=== PATIENT | male | born 1930 | race Caucasian/White ===

== ENCOUNTER 2016-06-17 17:52 | Inpatient (IN) | payer MEDICARE ==
[2016-06-17] VITALS (11 sets, daily range): BP systolic 122–177; BP diastolic 65–86; PULSE 88–99; RESP 14–22; TEMP 97.9–98; O2SAT 89–97
[~2016-06-17] VITALS: Ht 188 cm; Wt 94.8 kg
[~2016-06-17 17:52] MED LIST: AMLO5TAB2 PO; ASPI325T PO; BUPR1TAB29 PO; TYLETAB34 PO
[2016-06-17] MEDS ORDERED: PRESCAP5 PO (18:11)
[2016-06-17] MEDS ORDERED: SODIUM CHLORIDE 0.9% FLUSH 10 ML FLUSH IVF PRN ×2 (18:15→20:15)
[2016-06-17] MEDS ORDERED: ASPIRIN 325 MG TAB PO ONE (18:15)
--- NOTE | 2016-06-17 18:41 | PD ---
HPI Chief Complaint: Syncope/Near-Syncope Time Seen by Provider: 18:07 Travel History International Travel<30 days: No Contact w/Intl Traveler<30days: No Traveled to known affect area: No History of Present Illness HPI 85-year-old male arrives by EMS. He had a syncopal episode today. He was in his house where he has 24 7 home nurse care. He grabbed onto the railing adjacent to the door and wall in his bedroom and then fell to the ground. He was unresponsive for a few seconds. The home health aide was at his side and commenced chest compressions and performed about 6 in total before the patient regained consciousness. Evidently he clenched his jaw and became cyanotic on the order of seconds to maybe 1 minute. EMS notes urinary incontinence. R patient has no history of epilepsy however takes buproprion. EMS notes on scene the vital signs were normal and the patient was alert and oriented 3. His blood glucose was about 120. On room air the patient's pulse ox ox was 82%. That improved to the mid 90s with nonrebreather. In the ER the patient offers no specific complaint. He reports feeling lousy generally however he continues that has been in his usual state of health for the last few days. The daughter reports the patient is suffering with mild dementia, Parkinson's, depression and has declined somewhat rapidly over the past several weeks. PFSH Past Medical History Depression: Yes Heart Rhythm Problems: Yes Cancer: Yes (SKIN CANCER REMOVAL OF NOSE, EAR, AND CHEST) Cardiovascular Problems: Yes High Cholesterol: Yes Chemotherapy: No Chest Pain: Yes Congestive Heart Failure: No Cerebrovascular Accident: Yes (TIA DURING KNEE REPLACEMENT) Endocrine: No Genitourinary: No Hypertension: Yes Implanted Vascular Access Dvce: Yes Musculoskeletal: No Neurologic: Yes Parkinson's Disease: Yes Reproductive: No Respiratory: No Integumentary: Yes (BASAL CELL CARCINOMA) Immunizations Current: Yes Migraines: No Radiation Therapy: No Seizures: No Tetanus Vaccination: > 5 Years Influenza Vaccination: Yes Past Surgical History Joint Replacement: Yes (LEFT KNEE) Other Surgery: Yes (BASAL CELL CARCINOMA CHEST) Social History Alcohol Use: No Tobacco Use: No (QUIT ~1970) Substance Use: No Allergies-Medications (Allergen,Severity, Reaction): Coded Allergies: No Known Allergies (Unverified , 02/11/16) Reported Meds & Prescriptions Reported Meds & Active Scripts Active Tylenol-Codeine #3 (Acetaminophen-Codeine) 300-30 mg Tab 1 Tab PO Q6HR PRN Reported Preservision Areds 2 (Multiple Vitamins W/ Minerals) 1 Cap 1 Cap PO DAILY Bupropion HCl ER 12 HR (Bupropion HCl) 150 Mg Tab 150 Mg PO TID Aspirin 325 Mg Tab 325 Mg PO DAILY Amlodipine (Amlodipine Besylate) 5 Mg Tab 5 Mg PO BID Review of Systems Except as stated in HPI: all other systems reviewed are Neg General / Constitutional: No: Fever Psychiatric: Positive: Depression Physical Exam Narrative GENERAL: 85-year-old male pleasant well-nourished well-developed mild distress, speaking full sentences SKIN: Focused skin assessment warm/dry. HEAD: Atraumatic. Normocephalic. EYES: Pupils equal and round. No scleral icterus. No injection or drainage. ENT: No nasal bleeding or discharge. Mucous membranes pink and moist. NECK: Trachea midline. No JVD. CARDIOVASCULAR: Regular rate and rhythm. No murmur appreciated. RESPIRATORY: Breath sounds are clear on my exam. Patient speaks in short sentences. GASTROINTESTINAL: Abdomen soft, non-tender, nondistended. Hepatic and splenic margins not palpable. MUSCULOSKELETAL: No obvious deformities. No clubbing. No cyanosis. Trace edema about the bilateral lower extremities. NEUROLOGICAL: Awake and alert. No obvious cranial nerve deficits. Motor grossly within normal limits. Normal speech. PSYCHIATRIC: Appropriate mood and affect; insight and judgment normal. Data Data Last Documented VS Vital Signs Date Time Temp Pulse Resp B/P Pulse Ox O2 Delivery O2 Flow Rate FiO2 06/17/16 19:03 97 15 148/66 91 Nasal Cannula 4 06/17/16 17:59 98.0 Vital signs reviewed Orders Electrocardiogram (06/17/16 18:09) Basic Metabolic Panel (Bmp) (06/17/16 18:09) B-Type Natriuretic Peptide (06/17/16 18:09) Ckmb (Isoenzyme) Profile (06/17/16 18:09) Complete Blood Count With Diff (06/17/16 18:09) Magnesium (Mg) (06/17/16 18:09) Prothrombin Time / Inr (Pt) (06/17/16 18:09) Act Partial Throm Time (Ptt) (06/17/16 18:09) Troponin I (06/17/16 18:09) Chest, Single Ap (06/17/16 18:09) Ecg Monitoring (06/17/16 18:09) Bilateral Bp Monitoring (06/17/16 18:09) Iv Access Insert/Monitor (06/17/16 18:09) Oximetry (06/17/16 18:09) Oxygen Administration (06/17/16 18:09) Aspirin (Aspirin) (06/17/16 18:15) Sodium Chloride 0.9% Flush (Ns Flush) (06/17/16 18:15) Ct Pulmonary Angiogram (06/17/16 18:09) Arterial Blood Gas (Abg) (06/17/16 ) Ct Brain W/O Iv Contrast(Rout) (06/17/16 18:52) Labs Laboratory Tests Test 06/17/16 18:15 White Blood Count 8.7 TH/MM3 Red Blood Count 4.67 MIL/MM3 Hemoglobin 13.4 GM/DL Hematocrit 41.2 % Mean Corpuscular Volume 88.1 FL Mean Corpuscular Hemoglobin 28.7 PG Mean Corpuscular Hemoglobin 32.5 % Concent Red Cell Distribution Width 15.2 % Platelet Count 192 TH/MM3 Mean Platelet Volume 8.1 FL Neutrophils (%) (Auto) 68.5 % Lymphocytes (%) (Auto) 17.4 % Monocytes (%) (Auto) 9.4 % Eosinophils (%) (Auto) 4.1 % Basophils (%) (Auto) 0.6 % Neutrophils # (Auto) 5.9 TH/MM3 Lymphocytes # (Auto) 1.5 TH/MM3 Monocytes # (Auto) 0.8 TH/MM3 Eosinophils # (Auto) 0.4 TH/MM3 Basophils # (Auto) 0.0 TH/MM3 CBC Comment DIFF FINAL Differential Comment Prothrombin Time 11.1 SEC Prothromb Time International 1.0 RATIO Ratio Activated Partial 24.1 SEC Thromboplast Time MDM Medical Decision Making Medical Screen Exam Complete: Yes Emergency Medical Condition: Yes Medical Record Reviewed: Yes Differential Diagnosis Seizure, sepsis, intracranial bleed, cardiopulmonary arrest, arrhythmia, metabolic abnormality, pulmonary embolism, acute coronary syndrome Narrative Course EKG reveals a sinus rhythm at a rate of 99 normal axis and intervals; no ST elevation MD CBC & BMP Diagram 06/17/16 18:15 Etiology of the patient's loss of consciousness is unclear however the differential is somewhat broad. CT scanning of the head and chest pending at time dictation. D/w oncoming provider. Plan to admit pending work up. Darrel Munguia MD Jun 17, 2016 18:41
[2016-06-17 18:47] LABS: AUTOMATED NEUTROPHIL # 5.9 TH/MM3 (1.8-7.7); BASOPHIL % 0.6 % (0.0-2.0); EOSINOPHIL # 0.4 TH/MM3 (0-0.4); EOSINOPHIL % 4.1 % (0.0-4.0); HEMATOCRIT 41.2 % (39.0-51.0); HEMO FLAGS DIFF FINAL; LYMPH % 17.4 % (9.0-44.0); LYMPHOCYTE # 1.5 TH/MM3 (1.0-4.8); MEAN CELL VOLUME 88.1 FL (80.0-100.0); MEAN CORPUSCULAR HEMOGLOBIN 28.7 PG (27.0-34.0); MEAN CORPUSCULAR HGB CONC 32.5 % (32.0-36.0); MONO % 9.4 % (0.0-8.0); NEUT % 68.5 % (16.0-70.0); PLATELET COUNT 192 TH/MM3 (150-450); RED BLOOD COUNT 4.67 MIL/MM3 (4.50-5.90); RED CELL DISTRIBUTION WIDTH 15.2 % (11.6-17.2); WHITE BLOOD COUNT 8.7 TH/MM3 (4.0-11.0)
--- NOTE | 2016-06-17 18:55 | RADRPT ---
EXAM DATE/TIME: 06/17/2016 18:14 [facility] COMPARISON: CHEST SINGLE AP, August 24, 2014, 13:48. INDICATIONS : Chest pain, shortness of breath, and weakness. MEDICAL HISTORY : Myocardial infarction. Hypertension. SURGICAL HISTORY : None. ENCOUNTER: Initial ACUITY: 1 day PAIN SCORE: 2/10 LOCATION: Bilateral chest FINDINGS: The lungs are clear without infiltrate, nodule, or mass. There is no appreciable pleural effusion fo r technique. Heart and mediastinum are unremarkable. CONCLUSION: No acute cardiopulmonary disease. Maryann Redding MD on June 17, 2016 at 18:53 Board Certified Radiologist. This report was verified electronically.
[2016-06-17 19:00] LABS: APTT (PATIENT) 24.1 SEC (24.3-30.1); PROTHROMBIN TIME - PATIENT 11.1 SEC (9.8-11.6)
[2016-06-17 19:14] LABS: BICARBONATE 22.9 MEQ/L (21.0-32.0); MAGNESIUM 2.2 MG/DL (1.5-2.5); POTASSIUM 3.8 MEQ/L (3.5-5.1)
[2016-06-17] MEDS ORDERED: IOHEXOL 350 MG/ML 10 ML VIAL (for RAD DIAG) IV ONE (19:38)
--- NOTE | 2016-06-17 19:49 | RADRPT ---
EXAM DATE/TIME: 06/17/2016 19:38 [facility] COMPARISON: No previous studies available for comparison. INDICATIONS : Chest pain. IV CONTRAST: 75 cc Omnipaque 350 (iohexol) IV RADIATION DOSE: 16.22 CTDIvol (mGy) MEDICAL HISTORY : Parkinson's. Hypertension. Carcinoma; skin. SURGICAL HISTORY : None. ENCOUNTER: Initial ACUITY: 1 day PAIN SCALE: 4/10 LOCATION: Bilateral chest TECHNIQUE: Volumetric scanning of the chest was performed using a pulmonary embolism protocol MIP images were re constructed. Using automated exposure control and adjustment of the mA and/or kV according to patien t size, radiation dose was kept as low as reasonably achievable to obtain optimal diagnostic quality images. FINDINGS: There is extensive PE involving bilateral main pulmonary arteries, upper, lower lobe pulmonary a rteries and right middle lobe pulmonary arteries. Multiple simple cysts are present in the liver. Sca ttered areas of scarring are seen in the lungs. CONCLUSION: Extensive PE. Maryann Redding MD on June 17, 2016 at 19:46 Board Certified Radiologist. This report was verified electronically.
--- NOTE | 2016-06-17 19:50 | RADRPT ---
EXAM DATE/TIME: 06/17/2016 19:32 [facility] COMPARISON: CT BRAIN W/O CONTRAST, August 24, 2014, 14:23. INDICATIONS : Altered mental status. RADIATION DOSE: 56.35 CTDIvol (mGy) MEDICAL HISTORY : Parkinson's. Hypertension. Carcinoma; skin. SURGICAL HISTORY : None. ENCOUNTER: Initial ACUITY: 1 day PAIN SCALE: 3/10 LOCATION: cranial TECHNIQUE: Multiple contiguous axial images were obtained of the head. Using automated exposure control and adj ustment of the mA and/or kV according to patient size, radiation dose was kept as low as reasonably a chievable to obtain optimal diagnostic quality images. FINDINGS: There is no evidence for intracranial hemorrhage, mass effect, mass lesions, or edema. The visualize d bony structures appear intact. Slight degree of brain atrophy is seen. Slight periventricular whit e matter changes are seen nonspecific mostly consistent with chronic small vessel ischemic changes. There are no signs of acute infarction for technique. There is encephalomalacia in the anterior parie asia lobe on the left side chronic in nature. CONCLUSION: Slight atrophic and small vessel ischemic changes without any evidence for acute hemorrhage or mass effect. Maryann Redding MD on June 17, 2016 at 19:47 Board Certified Radiologist. This report was verified electronically.
--- NOTE | 2016-06-17 19:56 | PD ---
Physical Exam Date Seen by Provider: Jun 17, 2016 Time Seen by Provider: 19:15 Narrative Accepted in transfer of care from Dr. Munguia GENERAL: Well-developed well-nourished pleasant male in no acute distress no respiratory distress; O2 saturation on 2 L/m nasal cannula 93% SKIN: Warm and dry. HEAD: Normocephalic. EYES: No scleral icterus. No injection or drainage. NECK: Supple, trachea midline. No JVD or lymphadenopathy. CARDIOVASCULAR: Regular rate and rhythm without murmurs, gallops, or rubs. RESPIRATORY: Breath sounds equal bilaterally. No accessory muscle use. GASTROINTESTINAL: Abdomen soft, non-tender, nondistended. MUSCULOSKELETAL: No cyanosis, or edema. BACK: Nontender without obvious deformity. No CVA tenderness. Data Data Last Documented VS Vital Signs Date Time Temp Pulse Resp B/P Pulse Ox O2 Delivery O2 Flow Rate FiO2 06/17/16 19:56 96 18 143/80 92 Nasal Cannula 6 06/17/16 17:59 98.0 Orders Electrocardiogram (06/17/16 18:09) Basic Metabolic Panel (Bmp) (06/17/16 18:09) B-Type Natriuretic Peptide (06/17/16 18:09) Ckmb (Isoenzyme) Profile (06/17/16 18:09) Complete Blood Count With Diff (06/17/16 18:09) Magnesium (Mg) (06/17/16 18:09) Prothrombin Time / Inr (Pt) (06/17/16 18:09) Act Partial Throm Time (Ptt) (06/17/16 18:09) Troponin I (06/17/16 18:09) Chest, Single Ap (06/17/16 18:09) Ecg Monitoring (06/17/16 18:09) Bilateral Bp Monitoring (06/17/16 18:09) Iv Access Insert/Monitor (06/17/16 18:09) Oximetry (06/17/16 18:09) Oxygen Administration (06/17/16 18:09) Aspirin (Aspirin) (06/17/16 18:15) Sodium Chloride 0.9% Flush (Ns Flush) (06/17/16 18:15) Ct Pulmonary Angiogram (06/17/16 18:09) Arterial Blood Gas (Abg) (06/17/16 ) Ct Brain W/O Iv Contrast(Rout) (06/17/16 18:52) Iohexol 350 Inj (Omnipaque 350 Inj) (06/17/16 19:38) Admit Order (Ed Use Only) (06/17/16 ) ^ Saline Lock (06/17/16 20:06) Resp Oxygen Asim C Titrat 1-4 L (06/17/16 ) Notify Dr: Other (06/17/16 20:06) Sodium Chloride 0.9% Flush (Ns Flush) (06/17/16 21:00) Sodium Chloride 0.9% Flush (Ns Flush) (06/17/16 20:15) Heparin Infusion PHILIP.Q1H (06/17/16 20:12) Heparin Inj (Heparin Inj) (06/17/16 20:15) Heparin Inj (Heparin Inj) (06/18/16 02:15) Heparin Inj (Heparin Inj) (06/18/16 02:15) Heparin-D5w Inj (Heparin-D5w Inj) (06/17/16 20:15) Act Partial Throm Time (Ptt) (06/17/16 20:12) Prothrombin Time / Inr (Pt) (06/17/16 20:12) Cbc No Diff, Includes Plts (06/17/16 20:12) Cbc No Diff, Includes Plts (06/20/16 06:00) Act Partial Throm Time (Ptt) (06/18/16 03:12) Occult Blood (Hemoccult) Stool (06/17/16 20:12) Bupropion Sr (Wellbutrin Sr) (06/18/16 09:00) Labs Laboratory Tests Test 06/17/16 06/17/16 18:15 19:55 White Blood Count 8.7 TH/MM3 Red Blood Count 4.67 MIL/MM3 Hemoglobin 13.4 GM/DL Hematocrit 41.2 % Mean Corpuscular Volume 88.1 FL Mean Corpuscular Hemoglobin 28.7 PG Mean Corpuscular Hemoglobin 32.5 % Concent Red Cell Distribution Width 15.2 % Platelet Count 192 TH/MM3 Mean Platelet Volume 8.1 FL Neutrophils (%) (Auto) 68.5 % Lymphocytes (%) (Auto) 17.4 % Monocytes (%) (Auto) 9.4 % Eosinophils (%) (Auto) 4.1 % Basophils (%) (Auto) 0.6 % Neutrophils # (Auto) 5.9 TH/MM3 Lymphocytes # (Auto) 1.5 TH/MM3 Monocytes # (Auto) 0.8 TH/MM3 Eosinophils # (Auto) 0.4 TH/MM3 Basophils # (Auto) 0.0 TH/MM3 CBC Comment DIFF FINAL Differential Comment Prothrombin Time 11.1 SEC Prothromb Time International 1.0 RATIO Ratio Activated Partial 24.1 SEC Thromboplast Time Sodium Level 140 MEQ/L Potassium Level 3.8 MEQ/L Chloride Level 108 MEQ/L Carbon Dioxide Level 22.9 MEQ/L Anion Gap 9 MEQ/L Blood Urea Nitrogen 18 MG/DL Creatinine 1.10 MG/DL Estimat Glomerular Filtration 64 ML/MIN Rate Random Glucose 142 MG/DL Calcium Level 8.0 MG/DL Magnesium Level 2.2 MG/DL Total Creatine Kinase 76 U/L Troponin I 0.04 NG/ML B-Type Natriuretic Peptide 107 PG/ML Blood Gas Puncture Site RT RADIAL Blood Gas Patient Temperature 98.6 Blood Gas HCO3 21 mmol/L Blood Gas Base Excess -2.0 mmol/L Blood Gas Oxygen Saturation 90 % Arterial Blood pH 7.46 Arterial Blood Partial 31 mmHg Pressure CO2 Arterial Blood Partial 60 mmHG Pressure O2 Arterial Blood Oxygen Content 16.8 Vol % Arterial Blood 1.0 % Carboxyhemoglobin Arterial Blood Methemoglobin 0.9 % Blood Gas Hemoglobin 13.3 G/DL Oxygen Delivery Device NASAL CANNULA Blood Gas Liter Flow 4 L/M [facility] Medical Record Reviewed: Yes Supervised Visit with URSZULA: No Interpretation(s) CBC & BMP Diagram 06/17/16 18:15 EKG normal sinus rhythm rate [address] elevation or injury pattern change nonspecific Q-wave inferiorly age-indeterminate Last Impressions Head CT 06/17/161851 Signed Impressions: Service Date/Time: Friday, June 17, 2016 19:32 - CONCLUSION: Slight atrophic and small vessel ischemic changes without any evidence for acute hemorrhage or mass effect. Maryann Redding MD Chest X-Ray 06/17/161808 Signed Impressions: Service Date/Time: Friday, June 17, 2016 18:14 - CONCLUSION: No acute cardiopulmonary disease. Maryann Redding MD CT Angiography 06/17/161808 Signed Impressions: Service Date/Time: Friday, June 17, 2016 19:38 - CONCLUSION: Extensive PE. Maryann Redding MD Differential Diagnosis Please refer to Dr. Munguia's dictation Narrative Course Patient accepted in transfer care from Dr. Munguia; following up on pending imaging studies and patient disposition with plan for admission Physician Communication Physician Communication case discussed with and accepted by civil division deputy sheriff manager of medical Dr Domínguez -will start heparin Diagnosis Primary Impression: Bilateral pulmonary embolism Additional Impression: Syncope and collapse Admitting Information Admitting Physician Requests: Admit Annette Fitch MD Jun 17, 2016 19:56
[2016-06-17 20:07] LABS: BLOOD GAS HCO3 21 mmol/L (22-26); BLOOD GAS METHEMOGLOBIN 0.9 % (0-2); BLOOD GAS O2 HGB SATURATION 90 % (90-100); BLOOD GAS OXYGEN CONTENT 16.8 Vol % (12.0-20.0); BLOOD GAS PCO2 31 mmHg (38-42); BLOOD GAS PO2 60 mmHG (61-120); BLOOD GAS TOTAL HGB 13.3 G/DL (12.0-16.0); CRITICAL VALUE NO; TEMP CORR TO 98.6
[2016-06-17 20:08] LABS: DRAW SITE RT RADIAL; LITER FLOW 4 L/M; NUMBER OF ARTERIAL PUNCTURES 1; OXYGEN DEVICE NASAL CANNULA; STAT YES; ULNAR PULSE PRESENT
[2016-06-17] MEDS: SODIUM CHLOR 0.9% 1000 ML INJ 1,000 ML IV SCH (20:14)
[2016-06-17] MEDS ORDERED: ACETAMINOPHEN 325 MG TAB PO PRN (20:15)
[2016-06-17] MEDS ORDERED: CHLORHEXIDINE GLUCONATE 2 % 1 PACK (2 CLOTHS) TOP PRN (20:15)
[2016-06-17] MEDS ORDERED: HEPARIN SODIUM - IV 10,000 UNITS/10 ML VIAL IV ONE (20:15)
[2016-06-17] MEDS ORDERED: ONDANSETRON HCL 4 MG/2 ML VIAL IV PRN (20:15)
[2016-06-17] MEDS ORDERED: SENNOSIDES 8.6 MG TAB PO PRN (20:15)
[2016-06-17] MEDS ORDERED: MISCELLANEOUS NURSING INFORMATION XX SCH (20:15)
[2016-06-17] MEDS ORDERED: POTASSIUM PHOSPHATE MONOBASIC 500 MG TAB PO/TUBE PRN (20:18)
[2016-06-17] MEDS ORDERED: POTASSIUM PHOSPHATE INJ 30 MMOL in SODIUM CHLOR 0.9% 250 ML INJ 250 ML IV PRN (20:18)
--- NOTE | 2016-06-17 20:26 | HHI.HP ---
[facility] Service Critical Care Medicine Primary Care Physician [facility] Admission Diagnosis B PE; syncope Diagnosis: Chief Complaint: Fall. Travel History International Travel<30 Days: No Contact w/Intl Traveler <30 Da: No Traveled to Known Affected Are: No History of Present Illness 85 y/o man fell at assisted living facility and brought to ED for syncope. Head CT normal but CTA chest reveals submassive pulmonary embolism. Because of age, recent fall with head knock, I will not use tPA. Past Family Social History Allergies: Coded Allergies: No Known Allergies (Unverified , 02/11/16) Past Medical History Past Medical History Depression: Yes Heart Rhythm Problems: Yes Cancer: Yes (SKIN CANCER REMOVAL OF NOSE, EAR, AND CHEST) Cardiovascular Problems: Yes High Cholesterol: Yes Chemotherapy: No Chest Pain: Yes Congestive Heart Failure: No Cerebrovascular Accident: Yes (TIA DURING KNEE REPLACEMENT) Endocrine: No Genitourinary: No Hypertension: Yes Implanted Vascular Access Dvce: Yes Musculoskeletal: No Neurologic: Yes Parkinson's Disease: Yes Reproductive: No Respiratory: No Integumentary: Yes (BASAL CELL CARCINOMA) Immunizations Current: Yes Migraines: No Radiation Therapy: No Seizures: No Tetanus Vaccination: > 5 Years Influenza Vaccination: Yes Past Surgical History Joint Replacement: Yes (LEFT KNEE) Other Surgery: Yes (BASAL CELL CARCINOMA CHEST) Social History Alcohol Use: No Tobacco Use: No (QUIT ~1970) Substance Use: No Allergies-Medications Allergies-Medications (Allergen,Severity, Reaction): Coded Allergies: No Known Allergies (Unverified , 02/11/16) Reported Meds & Prescriptions Reported Meds & Active Scripts Active Tylenol-Codeine #3 (Acetaminophen-Codeine) 300-30 mg Tab 1 Tab PO Q6HR PRN Reported Preservision Areds 2 (Multiple Vitamins W/ Minerals) 1 Cap 1 Cap PO DAILY Bupropion HCl ER 12 HR (Bupropion HCl) 150 Mg Tab 150 Mg PO TID Aspirin 325 Mg Tab 325 Mg PO DAILY Amlodipine (Amlodipine Besylate) 5 Mg Tab 5 Mg PO BID Physical Exam Vital Signs Vital Signs Date Time Temp Pulse Resp B/P Pulse Ox O2 Delivery O2 Flow Rate FiO2 06/17/16 19:56 96 18 143/80 92 Nasal Cannula 6 06/17/16 19:03 97 15 148/66 91 Nasal Cannula 4 06/17/16 18:15 96 14 140/79 92 4 06/17/16 18:12 95 Non-Rebreather 12 06/17/16 18:12 22 89 Room Air 06/17/16 18:08 97 24 95 Non-Rebreather 12 06/17/16 17:59 98.0 99 22 140/82 Physical Exam Gen: Moderate distress Head: Normal. Neck: Supple, airway widely patent. Lungs: Clear, no wheezes. Tachypnea. Heart: NL S1S2, RRR, no m,r. No JVD. Abdomen: Benign, soft, ND. No guarding. Extremities: Warm, well perfused. Neuro: Moves 4 limbs to command. Conversant, speech clear. Laboratory Laboratory Tests Test 06/17/16 06/17/16 18:15 19:55 White Blood Count 8.7 Red Blood Count 4.67 Hemoglobin 13.4 Hematocrit 41.2 Mean Corpuscular Volume 88.1 Mean Corpuscular Hemoglobin 28.7 Mean Corpuscular Hemoglobin 32.5 Concent Red Cell Distribution Width 15.2 Platelet Count 192 Mean Platelet Volume 8.1 Neutrophils (%) (Auto) 68.5 Lymphocytes (%) (Auto) 17.4 Monocytes (%) (Auto) 9.4 Eosinophils (%) (Auto) 4.1 Basophils (%) (Auto) 0.6 Neutrophils # (Auto) 5.9 Lymphocytes # (Auto) 1.5 Monocytes # (Auto) 0.8 Eosinophils # (Auto) 0.4 Basophils # (Auto) 0.0 CBC Comment DIFF FINAL Differential Comment Prothrombin Time 11.1 Prothromb Time International 1.0 Ratio Activated Partial 24.1 Thromboplast Time Sodium Level 140 Potassium Level 3.8 Chloride Level 108 Carbon Dioxide Level 22.9 Anion Gap 9 Blood Urea Nitrogen 18 Creatinine 1.10 Estimat Glomerular Filtration 64 Rate Random Glucose 142 Calcium Level 8.0 Magnesium Level 2.2 Total Creatine Kinase 76 Troponin I 0.04 B-Type Natriuretic Peptide 107 Blood Gas Puncture Site RT RADIAL Blood Gas Patient Temperature 98.6 Blood Gas HCO3 21 Blood Gas Base Excess -2.0 Blood Gas Oxygen Saturation 90 Arterial Blood pH 7.46 Arterial Blood Partial 31 Pressure CO2 Arterial Blood Partial 60 Pressure O2 Arterial Blood Oxygen Content 16.8 Arterial Blood 1.0 Carboxyhemoglobin Arterial Blood Methemoglobin 0.9 Blood Gas Hemoglobin 13.3 Oxygen Delivery Device NASAL CANNULA Blood Gas Liter Flow 4 Result Diagram: 06/17/16181406/17/161814 Assessment and Plan Assessment and Plan Assessment: 1. Submassive pulmonary embolism. 2. Fall at home, syncope. 3. Mild dementia. Plan: 1. Full anticoagulation with heparin. 2. Transition to coumadin. 3. NC O2. 4. Protonix. 5. Absolute bed rest. 6. ABG. 7. No SCDs. Overall impression: Patient is critically ill with acute submassive pulmonary embolism, syncope and collapse. The fall was slow motion, trauma minimal. CPR done by caregiver briefly. Suspect hypotension rather than arrest. Still reluctant to use tPA but if he remains hypoxemic would consider 50 mg dose. Critical Care 39 mins Wesley Domínguez MD Jun 17, 2016 20:26
[2016-06-17] MEDS ORDERED: SODIUM PHOSPHATE INJ 30 MMOL in SODIUM CHLOR 0.9% 250 ML INJ 240 ML IV PRN (20:30)
[2016-06-17] MEDS ORDERED: POTASSIUM CHLORIDE 25 MEQ EFFERVESCENT TAB PO PRN (20:30)
[2016-06-17] MEDS ORDERED: MAGNESIUM SULFATE INJ 4 GM in SODIUM CHLORIDE 0.9% INJ 92 ML IV PRN (20:30)
[2016-06-17] MEDS ORDERED: POTASSIUM CHLOR 20 MEQ PREMIX 100 ML IV PRN ×2 (20:30)
[2016-06-17] MEDS ORDERED: POTASSIUM CHLOR 40 MEQ PREMIX 100 ML IV PRN ×2 (20:30)
[2016-06-17] MEDS ORDERED: MAGNESIUM OXIDE 400 MG TAB PO PRN (20:30)
[2016-06-17] MEDS ORDERED: POTASSIUM PHOSPHATE MONOBASIC 500 MG TAB PO PRN (20:30)
[2016-06-17] MEDS ORDERED: MAGNESIUM SULFATE INJ 2 GM in SODIUM CHLORIDE 0.9% INJ 96 ML IV PRN (20:30)
[2016-06-17 20:39] LABS: HEMATOCRIT 39.8 % (39.0-51.0); MEAN CELL VOLUME 87.7 FL (80.0-100.0); MEAN CORPUSCULAR HEMOGLOBIN 29.2 PG (27.0-34.0); MEAN CORPUSCULAR HGB CONC 33.3 % (32.0-36.0); PLATELET COUNT 224 TH/MM3 (150-450); RED BLOOD COUNT 4.53 MIL/MM3 (4.50-5.90); REVIEW FLAG FINAL; WHITE BLOOD COUNT 10.6 TH/MM3 (4.0-11.0)
[2016-06-17 20:50] LABS: APTT (PATIENT) 26.5 SEC (24.3-30.1); PROTHROMBIN TIME - PATIENT 11.5 SEC (9.8-11.6)
[2016-06-17] MEDS: DOCUSATE SODIUM 100 MG CAP PO SCH (21:00)
[2016-06-17] MEDS: SODIUM CHLORIDE 0.9% FLUSH 10 ML FLUSH IV FLUSH SCH (21:05)
[2016-06-17] MEDS: HEPARIN-D5W INJ 250 ML IV SCH (21:25)
[2016-06-17] MEDS: CHLORHEXIDINE GLUCONATE 2 % 1 PACK (2 CLOTHS) TOP SCH (23:41)
[2016-06-18] VITALS (10 sets, daily range): BP systolic 119–146; BP diastolic 30–81; PULSE 70–86; RESP 17–20; TEMP 97.9–99.7; O2SAT 92–96
[2016-06-18] MEDS ORDERED: HEPARIN SODIUM - IV 10,000 UNITS/10 ML VIAL IV PRN ×2 (02:15)
[2016-06-18 03:50] LABS: BICARBONATE 24.2 MEQ/L (21.0-32.0); POTASSIUM 3.7 MEQ/L (3.5-5.1)
[2016-06-18 04:17] LABS: APTT (PATIENT) GREATER THAN 153.4 SEC (24.3-30.1)
[2016-06-18] MEDS: SODIUM CHLOR 0.9% 1000 ML INJ 1,000 ML IV SCH (06:14)
[2016-06-18 07:12] LABS: APTT (PATIENT) 59.8 SEC (24.3-30.1)
[2016-06-18] MEDS: SODIUM CHLORIDE 0.9% FLUSH 10 ML FLUSH IV FLUSH SCH (09:00)
[2016-06-18] MEDS: buPROPion HCL 150 MG SUSTAINED RELEASE TAB PO SCH ×3 (09:30→18:09)
[2016-06-18] MEDS: PANTOPRAZOLE SOD 40 MG DELAYED RELEASE TAB PO SCH (09:30)
[2016-06-18] MEDS: DOCUSATE SODIUM 100 MG CAP PO SCH (09:30)
[2016-06-18 15:13] LABS: APTT (PATIENT) 62.3 SEC (24.3-30.1)
[2016-06-18] MEDS ORDERED: oxyCODONE/ACETAMINOPHEN 5 MG/325 MG TAB PO PRN (16:30)
--- NOTE | 2016-06-18 17:48 | HHI.CCPN ---
Subjective Remarks/Hospital Course 06/17: 85 y/o man fell at assisted living facility and brought to ED for syncope. Head CT normal but CTA chest reveals submassive pulmonary embolism. Because of age, recent fall with head knock, tPA not used. 06/18: Resting comfortably in bed. Minimal shortness of breath. No hypotension. Remains on Ventimask Objective Vital Signs Date Time Temp Pulse Resp B/P Pulse Ox O2 Delivery O2 Flow Rate FiO2 06/18/16 15:00 85 06/18/16 12:08 94 Venturi Mask 50 06/18/16 04:00 97.9 20 136/81 06/17/16 22:31 4 Intake and Output 06/17/16 06/17/16 06/18/16 08:00 16:00 00:00 Intake Total 39 ml Output Total 225 ml Balance -186 ml Result Diagram: 06/17/16202006/18/16318 Other Results Laboratory Tests Test 06/17/16 06/17/16 06/17/16 06/17/16 18:15 19:55 20:21 22:30 White Blood Count 8.7 TH/MM3 10.6 TH/MM3 Red Blood Count 4.67 MIL/MM3 4.53 MIL/MM3 Hemoglobin 13.4 GM/DL 13.2 GM/DL Hematocrit 41.2 % 39.8 % Mean Corpuscular Volume 88.1 FL 87.7 FL Mean Corpuscular Hemoglobin 28.7 PG 29.2 PG Mean Corpuscular Hemoglobin 32.5 % 33.3 % Concent Red Cell Distribution Width 15.2 % 15.0 % Platelet Count 192 TH/MM3 224 TH/MM3 Mean Platelet Volume 8.1 FL 7.8 FL Neutrophils (%) (Auto) 68.5 % Lymphocytes (%) (Auto) 17.4 % Monocytes (%) (Auto) 9.4 % Eosinophils (%) (Auto) 4.1 % Basophils (%) (Auto) 0.6 % Neutrophils # (Auto) 5.9 TH/MM3 Lymphocytes # (Auto) 1.5 TH/MM3 Monocytes # (Auto) 0.8 TH/MM3 Eosinophils # (Auto) 0.4 TH/MM3 Basophils # (Auto) 0.0 TH/MM3 CBC Comment DIFF FINAL Differential Comment Prothrombin Time 11.1 SEC 11.5 SEC Prothromb Time International 1.0 RATIO 1.0 RATIO Ratio Activated Partial 24.1 SEC 26.5 SEC Thromboplast Time Sodium Level 140 MEQ/L Potassium Level 3.8 MEQ/L Chloride Level 108 MEQ/L Carbon Dioxide Level 22.9 MEQ/L Anion Gap 9 MEQ/L Blood Urea Nitrogen 18 MG/DL Creatinine 1.10 MG/DL Estimat Glomerular Filtration 64 ML/MIN Rate Random Glucose 142 MG/DL Calcium Level 8.0 MG/DL Magnesium Level 2.2 MG/DL Total Creatine Kinase 76 U/L Troponin I 0.04 NG/ML B-Type Natriuretic Peptide 107 PG/ML Blood Gas Puncture Site RT RADIAL Blood Gas Patient Temperature 98.6 Blood Gas HCO3 21 mmol/L Blood Gas Base Excess -2.0 mmol/L Blood Gas Oxygen Saturation 90 % Arterial Blood pH 7.46 Arterial Blood Partial 31 mmHg Pressure CO2 Arterial Blood Partial 60 mmHG Pressure O2 Arterial Blood Oxygen Content 16.8 Vol % Arterial Blood 1.0 % Carboxyhemoglobin Arterial Blood Methemoglobin 0.9 % Blood Gas Hemoglobin 13.3 G/DL Oxygen Delivery Device NASAL CANNULA Blood Gas Liter Flow 4 L/M Nasal Screen MRSA (PCR) MRSA NOT DETECTED Test 06/18/16 06/18/16 06/18/16 03:19 06:18 14:43 Activated Partial GREATER THAN 59.8 SEC 62.3 SEC Thromboplast Time 153.4 SEC Sodium Level 141 MEQ/L Potassium Level 3.7 MEQ/L Chloride Level 109 MEQ/L Carbon Dioxide Level 24.2 MEQ/L Anion Gap 8 MEQ/L Blood Urea Nitrogen 17 MG/DL Creatinine 0.97 MG/DL Estimat Glomerular Filtration 74 ML/MIN Rate Random Glucose 112 MG/DL Calcium Level 7.8 MG/DL Imaging Last Impressions Head CT 06/17/161851 Signed Impressions: Service Date/Time: Friday, June 17, 2016 19:32 - CONCLUSION: Slight atrophic and small vessel ischemic changes without any evidence for acute hemorrhage or mass effect. Maryann Redding MD Chest X-Ray 06/17/161808 Signed Impressions: Service Date/Time: Friday, June 17, 2016 18:14 - CONCLUSION: No acute cardiopulmonary disease. Maryann Redding MD CT Angiography 06/17/161808 Signed Impressions: Service Date/Time: Friday, June 17, 2016 19:38 - CONCLUSION: Extensive PE. Maryann Redding MD Objective Remarks Gen: Elderly man sitting up in bed not in any acute distress Head: Normal. Neck: Supple, airway widely patent. Lungs: Clear, no wheezes. Heart: NL S1S2, RRR, no m,r. No JVD. Abdomen: Benign, soft, ND. No guarding. Extremities: Warm, well perfused. Neuro: Moves 4 limbs to command. Conversant, speech clear. A/P Assessment and Plan Assessment: 1. Submassive pulmonary embolism. 2. Fall at home, syncope. 3. Mild dementia. Plan: 1. Full anticoagulation with heparin. 2. Transition to coumadin. 3. NC O2. 4. Protonix. 5. Absolute bed rest. 6. ABG. 7. No SCDs. Overall impression: Patient is critically ill with acute submassive pulmonary embolism, syncope and collapse. The fall was slow motion, trauma minimal. CPR done by caregiver briefly. Suspect hypotension rather than arrest. Still reluctant to use tPA but if he remains hypoxemic would consider 50 mg dose. Patient's family came in today with his advanced directive and patient and family would like to change CODE STATUS to DNR which was addressed. Heath Eason MD Jun 18, 2016 17:48
--- NOTE | 2016-06-18 18:10 | RADRPT ---
EXAM DATE/TIME: 06/18/2016 16:36 [facility] COMPARISON: No previous studies available for comparison. INDICATIONS : Bilateral leg swelling. MEDICAL HISTORY : Parkinson's. Myocardial infarction. Hypercholesterolemia. CVA. Chest pain. Irregular heartbeat. HTN. Dyspnea. Basal cell carcinoma. Clotting problems. Anticoagulant therapy, Aspirin 325mg. SURGICAL HISTORY : Bilateral cataract. Left knee replacement. Basal cell carcinoma removal from nose, ear, and chest. ENCOUNTER: Initial ACUITY: 1 day PAIN SCORE: 8/10 LOCATION: Bilateral leg. TECHNIQUE: Venous ultrasound of the left and right leg was performed from the inguinal ligament to the proximal calf. Real-time, color Doppler and spectral tracing, compression and augmentation techniques were us ed. FINDINGS: RIGHT LEG: There is normal compressibility of the deep venous system from the inguinal region to the proximal ca lf. No echogenic clot is seen in the lumen of the common femoral, femoral, popliteal, and posterior tibial veins. There is a normal response of the venous system to proximal and distal augmentation an d respiration. LEFT LEG: There is nonocclusive thrombus in the left upper field, peroneal and posterior tibial veins. The supe rficial femoral vein, common femoral vein and iliac veins are patent. CONCLUSION: Nonocclusive DVT on the left. Maryann Redding MD on June 18, 2016 at 18:08 Board Certified Radiologist. This report was verified electronically.
[2016-06-18] MEDS: HEPARIN-D5W INJ 250 ML IV SCH (19:16)
[2016-06-18 21:53] LABS: APTT (PATIENT) 44.6 SEC (24.3-30.1)
--- NOTE | 2016-06-18 22:42 | EKG ---
Date Performed: 06/17/2016 Time Performed: 18:03:24 PTAGE: 85 years EKG: Sinus rhythm INFERIOR MYOCARDIAL INFARCTION, OLD NS T WAVE CHANGES ABNORMAL ECG PREVIOUS TRACING : 08/24/2014 21.11 Compared to prior tracing no significant change DOCTOR: Ab Squires Interpretating Date/Time 06/18/2016 22:40:50
[2016-06-19] VITALS (10 sets, daily range): BP systolic 125–156; BP diastolic 58–72; PULSE 67–78; RESP 17–20; TEMP 98.5–99.5; O2SAT 79–97
[2016-06-19] MEDS: CHLORHEXIDINE GLUCONATE 2 % 1 PACK (2 CLOTHS) TOP SCH (04:00)
[2016-06-19 06:20] LABS: AUTOMATED NEUTROPHIL # 7.2 TH/MM3 (1.8-7.7); BASOPHIL # 0.1 TH/MM3 (0-0.2); BASOPHIL % 0.6 % (0.0-2.0); EOSINOPHIL # 0.4 TH/MM3 (0-0.4); EOSINOPHIL % 3.9 % (0.0-4.0); HEMATOCRIT 39.5 % (39.0-51.0); HEMO FLAGS DIFF FINAL; LYMPH % 16.5 % (9.0-44.0); LYMPHOCYTE # 1.7 TH/MM3 (1.0-4.8); MEAN CELL VOLUME 87.1 FL (80.0-100.0); MEAN CORPUSCULAR HEMOGLOBIN 29.2 PG (27.0-34.0); MEAN CORPUSCULAR HGB CONC 33.6 % (32.0-36.0); MONO % 8.6 % (0.0-8.0); NEUT % 70.4 % (16.0-70.0); PLATELET COUNT 206 TH/MM3 (150-450); RED BLOOD COUNT 4.54 MIL/MM3 (4.50-5.90); WHITE BLOOD COUNT 10.3 TH/MM3 (4.0-11.0)
[2016-06-19 06:28] LABS: APTT (PATIENT) 68.3 SEC (24.3-30.1)
[2016-06-19 06:40] LABS: ALT (GPT) 17 U/L (12-78); ANION GAP 10 MEQ/L (5-15); AST (GOT) 16 U/L (15-37); BICARBONATE 23.5 MEQ/L (21.0-32.0); BLOOD UREA NITROGEN 21 MG/DL (7-18); CHLORIDE 107 MEQ/L (98-107); GLOMERULAR FILTRATION RATE 66 ML/MIN (>89); POTASSIUM 3.7 MEQ/L (3.5-5.1); SODIUM (NA) 140 MEQ/L (136-145)
[2016-06-19 06:46] LABS: ALKALINE PHOSPHATASE 82 U/L (45-117); TOTAL BILIRUBIN ADULT 0.6 MG/DL (0.2-1.0)
[2016-06-19] MEDS: buPROPion HCL 150 MG SUSTAINED RELEASE TAB PO SCH ×3 (08:26→16:39)
[2016-06-19] MEDS: PANTOPRAZOLE SOD 40 MG DELAYED RELEASE TAB PO SCH (08:27)
[2016-06-19] MEDS: SODIUM CHLORIDE 0.9% FLUSH 10 ML FLUSH IV FLUSH SCH ×2 (08:27→20:02)
[2016-06-19] MEDS: DOCUSATE SODIUM 100 MG CAP PO SCH ×2 (08:27→20:02)
--- NOTE | 2016-06-19 11:27 | HHI.PR ---
Subjective Remarks Pt tells me that he is feeling better. Now using NC 5L and tolerating it well. Daughter and one of his care givers at bedside. Daughter tells me that he doesn' t have a prior hx of DVT/PE. Pt has parkison and is not as mobile as before however he has care givers that massage his legs and feet. Pt denies any new onset of lower extremity pain. Denies any prior hx of long trips. No family hx of DVTs Pt denies any chest pains currently or nausea or vomiting. Objective Vitals Vital Signs Date Time Temp Pulse Resp B/P Pulse Ox O2 Delivery O2 Flow Rate FiO2 06/19/16 10:11 95 Venturi Mask 50 06/19/16 08:00 78 06/19/16 04:00 99.1 73 18 153/70 96 06/19/16 04:00 74 06/19/16 02:00 71 06/19/16 00:00 71 06/19/16 00:00 98.7 70 18 156/72 96 06/19/16 00:00 74 06/19/16 00:00 99.5 74 20 153/70 94 06/18/16 20:18 94 Venturi Mask 6.00 50 06/18/16 20:00 70 06/18/16 20:00 99.7 70 20 125/30 96 06/18/16 20:00 16 06/18/16 16:00 98.2 79 17 146/72 93 06/18/16 15:00 85 06/18/16 12:08 94 Venturi Mask 50 06/18/16 12:00 98.0 76 17 119/67 93 I/O 06/18/16 06/18/16 06/18/16 06/19/16 06/19/16 06/19/16 07:00 15:00 23:00 07:00 15:00 23:00 Intake Total 75 ml 121 ml 128 ml 176 ml Output Total 300 ml 400 ml 300 ml 400 ml Balance -225 ml -279 ml -172 ml -224 ml Intake Oral 0 ml 50 ml 100 ml IV Total 75 ml 121 ml 78 ml 76 ml Output Urine Total 300 ml 400 ml 300 ml 400 ml # Bowel Movements 0 Result Diagram: 06/19/16 0433 06/19/16 0433 Imaging Last Impressions Lower Extremity Ultrasound 06/18/16 0000 Signed Impressions: Service Date/Time: Saturday, June 18, 2016 16:36 - CONCLUSION: Nonocclusive DVT on the left. Maryann Redding MD Head CT 06/17/161851 Signed Impressions: Service Date/Time: Friday, June 17, 2016 19:32 - CONCLUSION: Slight atrophic and small vessel ischemic changes without any evidence for acute hemorrhage or mass effect. Maryann Redding MD Chest X-Ray 06/17/161808 Signed Impressions: Service Date/Time: Friday, June 17, 2016 18:14 - CONCLUSION: No acute cardiopulmonary disease. Maryann Redding MD CT Angiography 06/17/161808 Signed Impressions: Service Date/Time: Friday, June 17, 2016 19:38 - CONCLUSION: Extensive PE. Maryann Redding MD Objective Remarks Gen: Elderly man sitting up in bed not in any acute distress Lungs: Clear, no wheezes. Heart: NL S1S2, RRR, no m,r. No JVD. Abdomen: Benign, soft, ND. No guarding. Extremities: Warm, well perfused. Neuro: Moves 4 limbs to command. Conversant, speech clear. A/P Assessment and Plan 1. Extensive pulmonary embolism. 2. Fall at home, syncope. 3. Mild dementia. 4. per daughter hx of parkinson 5. HTN Plan: 1. Pt didn't receive tPA. Full anticoagulation with heparin. Will transition to coumadin 5mg po daily this pm. I have obtained a hematology consult for further recs and length of anticoagulation. continue NC and titrate down. Continue bed rest for now. Will continue to monitor in the ICU as pt just transitioned to NC a few minutes ago from venti mask. Consider transferring pt to regular floor in AM. PT eval once bedrest lifted. Code status was changed to DNR by family. u/s lower extremity shows DVT of the left knee 2. BP elevated. will slowly resume pt's home meds, per med rec he takes 5mg po BID, will start w 5mg po daily. 3. hx of fall: PT to evaluate and make recs for d/c planning. DVT proph: heparin/coumadin, pharmacy consult in place for coumadin mgt Discharge Planning Continue to monitor patient in the ICU. transfer to floor in AM Spent >35mins w coordination of care, documentation and discussing with family and patient regarding plan of care. Denisse Reyna MD June 19, 2016 11:27
[2016-06-19] MEDS: SODIUM CHLOR 0.9% 1000 ML INJ 1,000 ML IV SCH (12:14)
[2016-06-19] MEDS: amLODIPine BESYLATE 5 MG TAB PO SCH (12:37)
[2016-06-19] MEDS: WARFARIN SOD 5 MG TAB PO SCH (16:39)
[2016-06-19] MEDS: HEPARIN-D5W INJ 250 ML IV SCH (16:44)
--- NOTE | 2016-06-19 21:00 | EC ---
Study Study Date:06/19/2016 STUDY CONCLUSIONS SUMMARY - Left ventricle: The cavity size was normal. Wall thickness was normal. Systolic function was normal. The estimated ejection fraction was 60%. Wall motion was normal; there were no regional wall motion abnormalities. - Aortic valve: Trace regurgitation. - Right ventricle: The cavity size was mildly dilated. Wall thickness was normal. If LV function is below 40, please consider prescribing an ACEI or ARB or document rationale for non-use. PROCEDURE DATA STUDY STATUS: Elective. Procedure: Transthoracic echocardiography. Image quality was good. Scanning was performed from the parasternal, apical, and subcostal acoustic windows. Study completion: The patient tolerated the procedure well. Transthoracic echocardiography. M-mode, complete 2D, complete spectral Doppler, and color Doppler. Height: Height: 72in. Weight: Weight: 199.6lb. Body mass index: BMI: 27.1kg/m^2. Body surface area: BSA: 2.13m^2. Patient status: Inpatient. CARDIAC ANATOMY LEFT VENTRICLE: The cavity size was normal. Wall thickness was normal. Systolic function was normal. The estimated ejection fraction was 60%. Wall motion was normal; there were no regional wall motion abnormalities. AORTIC VALVE: Trileaflet; normal thickness leaflets. Doppler: Transvalvular velocity was within the normal range. There was no stenosis. Trace regurgitation. Valve area: 1.76cm^2 (Vmax). Indexed valve area: 0.83cm^2/m^2 (Vmax). Peak gradient: 11mm Hg (S). AORTA: Aortic root: The aortic root was normal in size. MITRAL VALVE: Structurally normal valve. Doppler: Transvalvular velocity was within the normal range. There was no evidence for stenosis. No regurgitation. Valve area by pressure half-time: 3.06cm^2. Indexed valve area by pressure half-time: 1.44cm^2/m^2. LEFT ATRIUM: The atrium was normal in size. RIGHT VENTRICLE: The cavity size was mildly dilated. Wall thickness was normal. PULMONIC VALVE: Doppler: Transvalvular velocity was within the normal range. There was no evidence for stenosis. No regurgitation. TRICUSPID VALVE: Structurally normal valve. Doppler: Transvalvular velocity was within the normal range. Trace regurgitation. Peak gradient: 27mm Hg (D). PULMONARY ARTERY: The main pulmonary artery was normal-sized. Systolic pressure was within the normal range. RIGHT ATRIUM: The atrium was normal in size. PERICARDIUM: There was no pericardial effusion. SYSTEMIC VEINS: Inferior vena cava: The vessel was normal in size. Patient weight: 199.6lb _Ejection fraction:_ 65-75% _Fractional shortening:_ 32% up to 5Kg 5-11.5Kg 11.6-22.9Kg 23-45Kg 45-57Kg Aortic Root 7-13 <17 13-22 17-27 17-27 LA diam 6-13 <23 24-38 33-47 37-40 RVID 10-17 7-15 7-15 7-18 8-17 LVIDd 12-22 <32 24-38 33-47 37-40 LVPW 2-4 3-6 5-7 6-8 7-8 IVS 2-4 3-6 5-7 6-8 7-8 BASIC MEASUREMENTS ADULT NORMAL Left ventricle LV internal dimension, ED, chordal *52.7 mm 43-52 level, PLAX LV internal dimension, ES, chordal 34.3 mm 23-38 level, PLAX Fractional shortening, chordal level, 35 % >29 PLAX LV posterior wall thickness, ED 10.3 mm IVS/LVPW ratio, ED 1.01 <1.3 Ventricular septum Septal thickness, ED 10.4 mm Aortic valve Leaflet separation 21 mm 15-26 Left atrium Anterior-posterior dimension 37 mm Anterior-posterior dimension index 1.74 cm/m^2 <2.2 BASIC MEASUREMENTS ADULT NORMAL Aortic valve Leaflet separation 21 mm 15-26 Aorta Root diameter, ED 34 mm 20-37 DOPPLER MEASUREMENTS ADULT NORMAL Aortic valve Peak velocity, S 168 cm/s Peak gradient, S 11 mm Hg Valve area, Vmax 1.76 cm^2 Valve area index, Vmax 0.83 cm^2/m^2 Regurgitant velocity, ED 282 cm/s Regurgitant deceleration 1050 cm/s^2 Regurgitant pressure half-time 787 ms Regurgitant gradient, ED 32 mm Hg Mitral valve Peak E-wave velocity 63.2 cm/s Peak A-wave velocity 111 cm/s Pressure half-time 72 ms Peak E/A ratio 0.6 Valve area, pressure half-time 3.06 cm^2 Valve area index, pressure half-time 1.44 cm^2/m^2 Tricuspid valve Peak gradient, D 27 mm Hg Maximal inflow velocity 185 cm/s Systemic veins Estimated CVP 10 mm Hg Pulmonic valve Peak velocity, S 99.1 cm/s LEGEND: Mean values are shown as u=mean value. Asterisk (*) joyner values outside specified normal range. Prepared and signed by Ab Squires [id number]
[2016-06-20] VITALS (13 sets, daily range): BP systolic 128–172; BP diastolic 59–81; PULSE 66–75; RESP 16–22; TEMP 96–98.9; O2SAT 93–97
[2016-06-20] MEDS: SODIUM CHLOR 0.9% 1000 ML INJ 1,000 ML IV SCH ×3 (00:14→18:14)
[2016-06-20] MEDS: CHLORHEXIDINE GLUCONATE 2 % 1 PACK (2 CLOTHS) TOP SCH (04:00)
[2016-06-20 06:03] LABS: HEMATOCRIT 36.2 % (39.0-51.0); MEAN CELL VOLUME 87.3 FL (80.0-100.0); MEAN CORPUSCULAR HEMOGLOBIN 29.6 PG (27.0-34.0); MEAN CORPUSCULAR HGB CONC 33.8 % (32.0-36.0); PLATELET COUNT 206 TH/MM3 (150-450); RED BLOOD COUNT 4.14 MIL/MM3 (4.50-5.90); RED CELL DISTRIBUTION WIDTH 15.1 % (11.6-17.2); REVIEW FLAG FINAL; WHITE BLOOD COUNT 8.4 TH/MM3 (4.0-11.0)
[2016-06-20 07:00] LABS: INTERNATIONAL NORMALIZED RATIO 1.1 RATIO; PROTHROMBIN TIME - PATIENT 12.5 SEC (9.8-11.6)
[2016-06-20 07:03] LABS: APTT (PATIENT) GREATER THAN 153.4 SEC (24.3-30.1)
--- NOTE | 2016-06-20 07:18 | MB ---
cc: LUISEVENS DATE OF CONSULTATION: 06/19/2016 DATE OF : 1930 REASON FOR CONSULTATION Patient with pulmonary embolism. HISTORY OF PRESENT ILLNESS This is an 85-year-old male who has a past medical history of Parkinson's and also underlying dementia, hypertension, history of myocardial infarction, history of CVA, who was brought to the emergency department after he experienced syncope and a fall. The patient tells me that he lives at home with a caregiver but from the admission note he is at an assisted-living facility. On admission he had a CT of the head which did not show any acute abnormality. He had a CT angiogram which shows an extensive PE involving bilateral pulmonary arteries, upper lower lobe pulmonary arteries and right middle lobe pulmonary artery. He had a Doppler ultrasound of the lower extremities which showed a nonocclusive DVT on the left. The patient was not a candidate for TPA because of his age, recent fall with a head injury. The patient was started on heparin gtt. The patient has no prior history of DVT or pulmonary embolism. The patient is a poor historian due to underlying dementia and history of stroke. He tells me that he has had left lower extremity weakness for quite some time. He states that it developed after his stroke. Upon further questioning the patient changed his statement and stated that the weakness developed a few months ago. He does not have any apparent lower extremity edema or swelling. He denies any chest pain or shortness of breath. No hemoptysis. REVIEW OF SYSTEMS A comprehensive 14-point review of systems was completed which is negative except as described in the HPI. PAST MEDICAL HISTORY 1. History of stroke. 2. History of Parkinson's. 3. History of dementia. 4. Hypertension. 5. Gastroesophageal reflux disease. 6. Depression. PAST SURGICAL HISTORY Unknown. Unable to obtain because of the patient's history of dementia. SOCIAL HISTORY He lives with a caregiver. He states that he is going to [facility]. He does not smoke cigarettes. No history of alcohol abuse. FAMILY HISTORY The family history was reviewed and is noncontributory to this admission. PHYSICAL EXAMINATION VITAL SIGNS: Blood pressure 139/69, pulse in the 60s, temperature 98.5, respiratory rate 14. GENERAL: A well-developed, well-nourished elderly male who appears acutely ill. HEENT: Pupils are equal, round and reactive to light. EOMI. No oral thrush. No oral lesions. NECK: Supple. No JVD. No bruits. No lymphadenopathy. CHEST: Clear to auscultation bilaterally. CARDIAC: S1, S2. Regular rate and rhythm. ABDOMEN: Soft, nontender, nondistended. Bowel sounds are present. EXTREMITIES: Without edema, erythema or cyanosis. SKIN: Without any petechiae, lesions or bruises. NEUROLOGIC: Left lower extremity weakness. PSYCHIATRIC: Mood and affect appropriate. The patient has dementia. LABORATORY WBC 10.3, hemoglobin 13.3, platelet count 206. Serum chemistries show sodium 140, potassium 3.7, creatinine 1.06, calcium 8.1, total bilirubin 0.6, AST 16, ALT 17, alk phos 82, total protein 6.6, albumin 3.2. IMAGING Imaging was reviewed in the EMR. ASSESSMENT AND PLAN This is an 85-year-old male with a history of dementia, stroke, Parkinson's and left lower extremity weakness, who presents after syncope and a fall, and was found to have massive bilateral pulmonary embolism. 1. Extensive pulmonary embolism which are bilateral and have a high clot burden. The patient is currently on heparin gtt. Due to the extent of the blood clots, the patient would need to be on anticoagulation indefinitely at this point. He will need a reassessment after one year of anticoagulation. He also has a nonocclusive DVT in the left lower extremity. The patient will be discharged back to an [facility]. He will need close follow-up afterwards. This can be done by the [facility] physician. I would recommend starting Coumadin. Continue heparin gtt until his INR is above 2 for at least 48 hours. 2. History of Parkinson's and dementia. 3. Status post syncope and fall. Patient with left lower extremity weakness. It is unclear from my conversation with the patient whether this is an acute problem or he has had it for some time. I would defer further work-up to the primary team. Thank you for allowing me to participate in the care of this patient. I will continue to follow this patient along. MD FEDE Zaman/MANUEL /12:24 AM /6:59 AM MTDD
[2016-06-20] MEDS: DOCUSATE SODIUM 100 MG CAP PO SCH ×2 (08:19→20:49)
[2016-06-20] MEDS: amLODIPine BESYLATE 5 MG TAB PO SCH (08:19)
[2016-06-20] MEDS: SODIUM CHLORIDE 0.9% FLUSH 10 ML FLUSH IV FLUSH SCH ×2 (08:19→20:49)
[2016-06-20] MEDS: buPROPion HCL 150 MG SUSTAINED RELEASE TAB PO SCH ×3 (08:19→17:48)
[2016-06-20] MEDS: PANTOPRAZOLE SOD 40 MG DELAYED RELEASE TAB PO SCH (08:19)
--- NOTE | 2016-06-20 12:29 | PD.ONC.PN ---
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 Afebrile overnight. Patient resting in bed. Denies pain or bleeding. Wants to know when he will be moved out of [facility]. Objective Data Date Time Temp Pulse Resp B/P Pulse Ox O2 Delivery O2 Flow Rate FiO2 06/20/16 12:00 98.9 68 16 130/59 96 06/20/16 12:00 68 06/20/16 10:00 66 06/20/16 08:00 72 06/20/16 08:00 98.3 66 18 172/78 96 06/20/16 07:17 96 Nasal Cannula 4.00 06/20/16 07:00 92 Nasal Cannula 5.00 06/20/16 04:00 98.5 71 19 130/61 96 06/20/16 00:00 69 06/20/16 00:00 98.6 67 20 137/65 95 06/19/16 20:01 97 Nasal Cannula 5.00 06/19/16 20:00 98.5 69 19 139/69 94 06/19/16 19:51 Nasal Cannula 5.00 06/19/16 16:00 98.7 67 17 125/58 94 06/19/16 15:00 78 06/20/16 06/20/16 06/20/16 07:00 15:00 23:00 Intake Total 1041 ml Output Total 950 ml Balance 91 ml Result Diagram: 06/20/16 0512 06/19/16 0433 Laboratory Results Laboratory Tests Test 06/20/16 05:12 White Blood Count 8.4 TH/MM3 Red Blood Count 4.14 MIL/MM3 Hemoglobin 12.2 GM/DL Hematocrit 36.2 % Mean Corpuscular Volume 87.3 FL Mean Corpuscular Hemoglobin 29.6 PG Mean Corpuscular Hemoglobin 33.8 % Concent Red Cell Distribution Width 15.1 % Platelet Count 206 TH/MM3 Mean Platelet Volume 8.0 FL Prothrombin Time 12.5 SEC Prothromb Time International 1.1 RATIO Ratio Activated Partial GREATER THAN Thromboplast Time 153.4 SEC Administered Medications Medications (Trade) Dose Ordered Sig/Abdias Route PRN Reason Start Time Stop Time Status Last Admin Dose Admin Sodium Chloride 2 ml 2 ml BID IV FLUSH 06/17/16 21:00 06/20/16 08:19 Heparin Sodium/ Dextrose (Heparin-D5W Inj) 250 ml @ 0 mls/hr TITRATE IV 06/17/16 20:15 06/19/16 16:44 Bupropion HCl 150 mg 150 mg TID PO 06/18/16 09:00 06/20/16 08:19 Sodium Chloride (NS 1000 ml Inj) 1,000 ml @ 100 mls/hr Q10H IV 06/17/16 20:14 06/20/16 08:18 Pantoprazole Sodium (Protonix) 40 mg DAILY PO 06/18/16 09:00 06/20/16 08:19 Docusate Sodium (Colace) 100 mg BID PO 06/17/16 21:00 06/20/16 08:19 Chlorhexidine Gluconate (Chlorhexidine 2% Cloth) 3 pack Taper DAILY@04 TOP 06/18/16 04:00 06/14/17 03:59 06/20/16 04:00 Oxycodone/ Acetaminophen (Percocet 5-325 Mg) 1 tab Q8HR PRN PO pain scale 3-10 06/18/16 16:30 06/18/16 17:13 Amlodipine Besylate (Norvasc) 5 mg DAILY PO 06/19/16 11:45 06/20/16 08:19 Warfarin Sodium (Coumadin) 5 mg DAILY@1600 PO 06/19/16 16:00 06/19/16 16:39 Objective Remarks GENERAL: Pleasant elderly male, supine in bed SKIN: Warm and dry. HEAD: Normocephalic. EYES: No scleral icterus. No injection or drainage. NECK: Supple, trachea midline. CARDIOVASCULAR: Regular rate and rhythm RESPIRATORY: Breath sounds equal bilaterally. No accessory muscle use. GASTROINTESTINAL: Abdomen soft, non-tender, nondistended. EXTREMITIES: No cyanosis NEUROLOGICAL: No obvious focal deficit. Awake and alert, normal speech. Assessment/Plan Problem List: (1) Bilateral pulmonary embolism Status: Acute Plan: --bilateral PE --currently on heparin gtt-->coumadin --nonocclusive DVT in LLE --Continue heparin gtt until his INR is above 2 for at least 48 hours. Assessment 85y/o admitted after syncope and fall. Hematology consulted for bilateral PE history of Parkinson's and dementia, hypertension, history of myocardial infarction, CVA. Plan 1. continue heparin bridge to coumadin 2. monitor INR Attending Statement The exam, history, and the medical decision-making described in the above note were completed with the assistance of the mid-level provider. I reviewed and agree with the findings presented. I attest that I had a [id number] encounter with the patient on the same day, and personally performed and documented my assessment and findings in the medical record Sherry Hassan June 20, 2016 12:29 Garo Momin MD June 20, 2016 21:46
[2016-06-20] MEDS: HEPARIN-D5W INJ 250 ML IV SCH (15:59)
[2016-06-20] MEDS ORDERED: WARFARIN SOD 2.5 MG TAB PO SCH (16:00)
[2016-06-20] MEDS: WARFARIN SOD 5 MG TAB PO SCH (16:53)
[2016-06-20 17:21] LABS: APTT (PATIENT) 74.6 SEC (24.3-30.1)
[2016-06-20] MEDS: RESP: ALBUTEROL 2.5 MG/IPRATROPIUM 0.5 MG NEB (PRN) INH (21:10)
--- NOTE | 2016-06-20 21:21 | HHI.PR ---
Subjective Remarks Mr. Garibay was admitted with a bilateral acute PE, he is improving through time. He still is needing oxygen, but feels less SOB. No complaints today. No nausea. No chest pain. Objective Vital Signs Date Time Temp Pulse Resp B/P Pulse Ox O2 Delivery O2 Flow Rate FiO2 06/20/16 17:39 96 Nasal Cannula 4.00 06/20/16 16:00 97.8 73 20 171/81 93 06/20/16 15:24 70 06/20/16 13:15 96.0 70 20 128/75 96 06/20/16 12:00 98.9 68 16 130/59 96 06/20/16 12:00 68 06/20/16 10:00 66 06/20/16 08:00 72 06/20/16 08:00 98.3 66 18 172/78 96 06/20/16 07:17 96 Nasal Cannula 4.00 06/20/16 07:00 92 Nasal Cannula 5.00 06/20/16 04:00 98.5 71 19 130/61 96 06/20/16 00:00 69 06/20/16 00:00 98.6 67 20 137/65 95 I/O 06/19/16 06/19/16 06/19/16 06/20/16 06/20/16 06/20/16 07:00 15:00 23:00 07:00 15:00 23:00 Intake Total 176 ml 556 ml 1202 ml 1041 ml 240 ml Output Total 400 ml 850 ml 50 ml 950 ml 75 ml Balance -224 ml -294 ml 1152 ml 91 ml 165 ml Intake Oral 100 ml 300 ml 300 ml 240 ml IV Total 76 ml 556 ml 902 ml 741 ml Output Urine Total 400 ml 850 ml 50 ml 950 ml 75 ml # Voids 2 5 # Bowel Movements 0 Result Diagram: 06/20/16 0512 06/19/16 0433 Imaging Last Impressions Lower Extremity Ultrasound 06/18/16 0000 Signed Impressions: Service Date/Time: Saturday, June 18, 2016 16:36 - CONCLUSION: Nonocclusive DVT on the left. Maryann Redding MD Head CT 06/17/16 1852 Signed Impressions: Service Date/Time: Friday, June 17, 2016 19:32 - CONCLUSION: Slight atrophic and small vessel ischemic changes without any evidence for acute hemorrhage or mass effect. Maryann Redding MD Chest X-Ray 06/17/161808 Signed Impressions: Service Date/Time: Friday, June 17, 2016 18:14 - CONCLUSION: No acute cardiopulmonary disease. Maryann Redding MD CT Angiography [id number]/17/161808 Signed Impressions: Service Date/Time: Friday, June 17, 2016 19:38 - CONCLUSION: Extensive PE. Maryann Redding MD Objective Remarks GENERAL: NAD, A&Ox2 SKIN: Warm and dry. HEAD: Normocephalic. EYES: No scleral icterus. No injection or drainage. NECK: Supple, trachea midline. No JVD or lymphadenopathy. CARDIOVASCULAR: Regular rate and rhythm without murmurs, gallops, or rubs. RESPIRATORY: Breath sounds equal bilaterally. No accessory muscle use. Clear to auscultation. GASTROINTESTINAL: Abdomen soft, non-tender, nondistended. MUSCULOSKELETAL: No cyanosis, or edema. BACK: Nontender without obvious deformity. No CVA tenderness. Medications and IVs Administered Medications Medications (Trade) Dose Ordered Sig/Abdias Route PRN Reason Start Time Stop Time Status Last Admin Dose Admin Sodium Chloride 2 ml 2 ml BID IV FLUSH 06/17/16 21:00 06/20/16 20:49 Heparin Sodium/ Dextrose (Heparin-D5W Inj) 250 ml @ 0 mls/hr TITRATE IV 06/17/16 20:15 06/20/16 15:59 Bupropion HCl 150 mg 150 mg TID PO 06/18/16 09:00 06/20/16 17:48 Sodium Chloride (NS 1000 ml Inj) 1,000 ml @ 100 mls/hr Q10H IV 06/17/16 20:14 06/20/16 08:18 Pantoprazole Sodium (Protonix) 40 mg DAILY PO 06/18/16 09:00 06/20/16 08:19 Docusate Sodium (Colace) 100 mg BID PO 06/17/16 21:00 06/20/16 20:49 Sennosides (Senokot) 17.2 mg Q12H PRN PO CONSTIPATION 06/17/16 20:15 06/20/16 20:48 Chlorhexidine Gluconate (Chlorhexidine 2% Cloth) 3 pack Taper DAILY@04 TOP 06/18/16 04:00 06/14/17 03:59 06/20/16 04:00 Oxycodone/ Acetaminophen (Percocet 5-325 Mg) 1 tab Q8HR PRN PO pain scale 3-10 06/18/16 16:30 06/18/16 17:13 Amlodipine Besylate (Norvasc) 5 mg DAILY PO 06/19/16 11:45 06/20/16 08:19 Warfarin Sodium (Coumadin) 5 mg DAILY@1600 PO 06/19/16 16:00 06/20/16 16:53 A/P Problem List: (1) Bilateral pulmonary embolism ICD Code: I26.99 Assessment & Plan: Heparin Coumadin Follow INR Monitor BP Oxygen as needed Follow for improved oxygenation and exertional tolerance (2) Syncope and collapse ICD Code: R55 Assessment & Plan: related to pulmonary embolus (was likely large) (3) Hypertension ICD Code: I10 Assessment & Plan: Follow BP Treat with PRN enalapril (4) Parkinson disease ICD Code: G20 Assessment & Plan: Supportive care PT OT Discharge Planning Goal to wean from oxygen with exertional tolerance and baseline ambulation. Darrel Cain MD June 20, 2016 21:20
[2016-06-20 23:05] LABS: APTT (PATIENT) 105.9 SEC (24.3-30.1)
[2016-06-21] VITALS (9 sets, daily range): BP systolic 113–187; BP diastolic 62–85; PULSE 67–81; RESP 20–22; TEMP 96.2–98.3; O2SAT 94–98
[2016-06-21] MEDS: RESP: ALBUTEROL 2.5 MG/IPRATROPIUM 0.5 MG NEB (PRN) INH ×2 (01:39→19:29)
[2016-06-21] MEDS: ENALAPRILAT 1.25 MG/ML VIAL IV PUSH PRN ×3 (03:52→20:35)
[2016-06-21] MEDS: CHLORHEXIDINE GLUCONATE 2 % 1 PACK (2 CLOTHS) TOP SCH (03:56)
[2016-06-21] MEDS: SODIUM CHLOR 0.9% 1000 ML INJ 1,000 ML IV SCH ×2 (03:58→15:34)
[2016-06-21 04:52] LABS: INTERNATIONAL NORMALIZED RATIO 1.7 RATIO; PROTHROMBIN TIME - PATIENT 19.3 SEC (9.8-11.6)
[2016-06-21 05:02] LABS: HEMATOCRIT 35.6 % (39.0-51.0); MEAN CELL VOLUME 87.9 FL (80.0-100.0); MEAN CORPUSCULAR HEMOGLOBIN 29.5 PG (27.0-34.0); MEAN CORPUSCULAR HGB CONC 33.6 % (32.0-36.0); PLATELET COUNT 216 TH/MM3 (150-450); RED BLOOD COUNT 4.05 MIL/MM3 (4.50-5.90); RED CELL DISTRIBUTION WIDTH 14.8 % (11.6-17.2); REVIEW FLAG FINAL; WHITE BLOOD COUNT 8.2 TH/MM3 (4.0-11.0)
[2016-06-21 05:09] LABS: BICARBONATE 24.3 MEQ/L (21.0-32.0); POTASSIUM 3.8 MEQ/L (3.5-5.1)
[2016-06-21] MEDS: SODIUM CHLORIDE 0.9% FLUSH 10 ML FLUSH IV FLUSH SCH ×2 (09:43→19:56)
[2016-06-21] MEDS: DOCUSATE SODIUM 100 MG CAP PO SCH ×2 (09:43→19:56)
[2016-06-21] MEDS: amLODIPine BESYLATE 5 MG TAB PO SCH (09:43)
[2016-06-21] MEDS: buPROPion HCL 150 MG SUSTAINED RELEASE TAB PO SCH ×3 (09:43→17:48)
[2016-06-21] MEDS: PANTOPRAZOLE SOD 40 MG DELAYED RELEASE TAB PO SCH (09:43)
--- NOTE | 2016-06-21 10:41 | HHI.PR ---
Subjective Remarks Moderate confussion this morning (has confussion at baseline). INR is 1.7 today. No bleeding. No complaints. Objective Vital Signs Date Time Temp Pulse Resp B/P Pulse Ox O2 Delivery O2 Flow Rate FiO2 06/21/16 08:00 98.3 81 20 187/85 96 Automatic Cuff 06/21/16 04:28 152/74 06/21/16 04:00 98.0 81 22 171/78 96 06/21/16 00:00 98.2 79 22 160/74 95 06/20/16 22:00 142/76 06/20/16 21:00 75 06/20/16 20:00 Nasal Cannula 5.00 06/20/16 20:00 97.8 75 22 172/73 97 06/20/16 17:39 96 Nasal Cannula 4.00 06/20/16 16:00 97.8 73 20 171/81 93 06/20/16 15:24 70 06/20/16 13:15 96.0 70 20 128/75 96 06/20/16 12:00 98.9 68 16 130/59 96 06/20/16 12:00 68 I/O 06/20/16 06/20/16 06/20/16 06/21/16 06/21/16 06/21/16 07:00 15:00 23:00 07:00 15:00 23:00 Intake Total 1041 ml 240 ml 2768 ml 896 ml Output Total 950 ml 75 ml 300 ml 800 ml Balance 91 ml 165 ml 2468 ml 96 ml Intake Oral 300 ml 240 ml 400 ml 120 ml IV Total 741 ml 2368 ml 776 ml Output Urine Total 950 ml 75 ml 300 ml 800 ml # Voids 5 # Bowel Movements 0 0 2 Result Diagram: 06/21/16 0430 06/21/16 0430 Objective Remarks GENERAL: NAD, A&Ox1 SKIN: Warm and dry. HEAD: Normocephalic. EYES: No scleral icterus. No injection or drainage. NECK: Supple, trachea midline. No JVD or lymphadenopathy. CARDIOVASCULAR: Regular rate and rhythm without murmurs, gallops, or rubs. RESPIRATORY: Breath sounds equal bilaterally. No accessory muscle use. Clear to auscultation. GASTROINTESTINAL: Abdomen soft, non-tender, nondistended. MUSCULOSKELETAL: No cyanosis, or edema. BACK: Nontender without obvious deformity. No CVA tenderness. A/P Problem List: (1) Bilateral pulmonary embolism ICD Code: I26.99 Assessment & Plan: Heparin Coumadin Follow INR INR is 1.7 today Monitor BP Oxygen as needed Follow for improved oxygenation and exertional tolerance (2) Syncope and collapse ICD Code: R55 Assessment & Plan: related to pulmonary embolus (was likely large) No recurrence of syncope or presyncope (3) Hypertension ICD Code: I10 Assessment & Plan: Follow BP Treat with PRN enalapril (4) Parkinson disease ICD Code: G20 Assessment & Plan: Supportive care PT OT Discharge Planning Goal to wean from oxygen with exertional tolerance and baseline ambulation. Darrel Cain MD June 21, 2016 10:41
[2016-06-21 11:55] LABS: APTT (PATIENT) 54.5 SEC (24.3-30.1)
[2016-06-21] MEDS: HEPARIN-D5W INJ 250 ML IV SCH (15:38)
[2016-06-21] MEDS ORDERED: WARFARIN SOD 4 MG TAB PO SCH (16:00)
[2016-06-21 17:02] LABS: APTT (PATIENT) 46.4 SEC (24.3-30.1)
--- NOTE | 2016-06-21 23:15 | PD.ONC.PN ---
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 on heparin GTT and coumadin INR rising awake and alert no dyspnea Objective Data Date Time Temp Pulse Resp B/P Pulse Ox O2 Delivery O2 Flow Rate FiO2 06/21/16 20:00 96.2 67 22 164/84 95 06/21/16 19:30 98 Nasal Cannula 4.00 06/21/16 16:00 97.8 74 20 127/62 95 06/21/16 12:00 97.3 75 20 113/64 97 06/21/16 11:10 94 Nasal Cannula 4.00 06/21/16 08:00 98.3 81 20 187/85 96 Automatic Cuff 06/21/16 08:00 Nasal Cannula 5.00 06/21/16 08:00 75 06/21/16 04:28 152/74 06/21/16 04:00 98.0 81 22 171/78 96 06/21/16 00:00 98.2 79 22 160/74 95 06/21/16 06/21/16 06/21/16 07:00 15:00 23:00 Intake Total 896 ml 1837 ml 927 ml Output Total 800 ml 480 ml Balance 96 ml 1837 ml 447 ml Result Diagram: 06/21/16 0430 06/21/16 0430 Laboratory Results Laboratory Tests Test 06/21/16 06/21/16 06/21/16 04:30 11:31 16:27 White Blood Count 8.2 TH/MM3 Red Blood Count 4.05 MIL/MM3 Hemoglobin 12.0 GM/DL Hematocrit 35.6 % Mean Corpuscular Volume 87.9 FL Mean Corpuscular Hemoglobin 29.5 PG Mean Corpuscular Hemoglobin 33.6 % Concent Red Cell Distribution Width 14.8 % Platelet Count 216 TH/MM3 Mean Platelet Volume 8.2 FL Prothrombin Time 19.3 SEC Prothromb Time International 1.7 RATIO Ratio Activated Partial 78.0 SEC 54.5 SEC 46.4 SEC Thromboplast Time Sodium Level 142 MEQ/L Potassium Level 3.8 MEQ/L Chloride Level 109 MEQ/L Carbon Dioxide Level 24.3 MEQ/L Anion Gap 9 MEQ/L Blood Urea Nitrogen 18 MG/DL Creatinine 0.92 MG/DL Estimat Glomerular Filtration 78 ML/MIN Rate Random Glucose 118 MG/DL Calcium Level 7.6 MG/DL Administered Medications Medications (Trade) Dose Ordered Sig/Abdias Route PRN Reason Start Time Stop Time Status Last Admin Dose Admin Sodium Chloride 2 ml 2 ml BID IV FLUSH 06/17/16 21:00 06/21/16 19:56 Heparin Sodium/ Dextrose (Heparin-D5W Inj) 250 ml @ 0 mls/hr TITRATE IV 06/17/16 20:15 06/21/16 15:38 Bupropion HCl 150 mg 150 mg TID PO 06/18/16 09:00 06/21/16 17:48 Sodium Chloride (NS 1000 ml Inj) 1,000 ml @ 100 mls/hr Q10H IV 06/17/16 20:14 06/21/16 15:34 Pantoprazole Sodium (Protonix) 40 mg DAILY PO 06/18/16 09:00 06/21/16 09:43 Docusate Sodium (Colace) 100 mg BID PO 06/17/16 21:00 06/21/16 19:56 Sennosides (Senokot) 17.2 mg Q12H PRN PO CONSTIPATION 06/17/16 20:15 06/20/16 20:48 Chlorhexidine Gluconate (Chlorhexidine 2% Cloth) 3 pack Taper DAILY@04 TOP 06/18/16 04:00 06/14/17 03:59 06/21/16 03:56 Oxycodone/ Acetaminophen (Percocet 5-325 Mg) 1 tab Q8HR PRN PO pain scale 3-10 06/18/16 16:30 06/18/16 17:13 Amlodipine Besylate (Norvasc) 5 mg DAILY PO 06/19/16 11:45 06/21/16 09:43 Enalaprilat (Vasotec Inj) 1.25 mg Q6H PRN IV PUSH SBP>160, DBP>90 06/20/16 21:30 06/21/16 20:35 Warfarin Sodium (Coumadin) 4 mg DAILY@16 PO 06/21/16 16:00 06/21/16 15:35 Objective Remarks GENERAL: nad SKIN: Warm and dry. NECK: Supple, trachea midline. No JVD or lymphadenopathy. LYMPHATIC: No adenopathy. CARDIOVASCULAR: Regular rate and rhythm without murmurs. RESPIRATORY: Breath sounds equal bilaterally. No accessory muscle use. GASTROINTESTINAL: Abdomen soft, non-tender, nondistended. EXTREMITIES: No cyanosis, Assessment/Plan Problem List: (1) Bilateral pulmonary embolism Status: Acute Plan: --bilateral PE --currently on heparin gtt-->coumadin --nonocclusive DVT in LLE --Continue heparin gtt until his INR is above 2 for at least 48 hours. Assessment 85y/o admitted after syncope and fall. Hematology consulted for bilateral PE history of Parkinson's and dementia, hypertension, history of myocardial infarction, CVA. Plan 1. continue heparin until INR > 2 for at least 48 hours. Other option would be to discharge while on lovenox and Coumadin and outpatient management at [facility] / half-way Garo Momin MD June 21, 2016 23:15
[2016-06-22] VITALS (9 sets, daily range): BP systolic 133–180; BP diastolic 60–77; PULSE 73–89; RESP 19–21; TEMP 97.8–98.5; O2SAT 94–99
[2016-06-22] MEDS: SODIUM CHLOR 0.9% 1000 ML INJ 1,000 ML IV SCH ×3 (00:43→20:26)
[2016-06-22] MEDS: CHLORHEXIDINE GLUCONATE 2 % 1 PACK (2 CLOTHS) TOP SCH (03:31)
[2016-06-22 07:24] LABS: INTERNATIONAL NORMALIZED RATIO 3.7 RATIO; PROTHROMBIN TIME - PATIENT 43.9 SEC (9.8-11.6)
[2016-06-22 07:33] LABS: APTT (PATIENT) 47.9 SEC (24.3-30.1)
[2016-06-22] MEDS: RESP: ALBUTEROL 2.5 MG/IPRATROPIUM 0.5 MG NEB (PRN) INH ×3 (07:41→21:00)
[2016-06-22] MEDS: buPROPion HCL 150 MG SUSTAINED RELEASE TAB PO SCH ×3 (09:42→18:14)
[2016-06-22] MEDS: SODIUM CHLORIDE 0.9% FLUSH 10 ML FLUSH IV FLUSH SCH ×2 (09:42→20:37)
[2016-06-22] MEDS: DOCUSATE SODIUM 100 MG CAP PO SCH ×2 (09:42→20:35)
[2016-06-22] MEDS: PANTOPRAZOLE SOD 40 MG DELAYED RELEASE TAB PO SCH (09:42)
[2016-06-22] MEDS: amLODIPine BESYLATE 5 MG TAB PO SCH (09:42)
[2016-06-22] MEDS: ENALAPRILAT 1.25 MG/ML VIAL IV PUSH PRN ×2 (09:42→20:36)
--- NOTE | 2016-06-22 10:01 | HHI.PR ---
Subjective Remarks Less confussion this morning (has confussion at baseline). INR is 3.7 today. No bleeding. No complaints. Objective Vital Signs Date Time Temp Pulse Resp B/P Pulse Ox O2 Delivery O2 Flow Rate FiO2 06/22/16 08:31 97.8 76 20 162/72 95 06/22/16 07:41 94 Nasal Cannula 3.00 06/22/16 04:42 98.5 78 21 148/76 99 06/22/16 04:00 Nasal Cannula 3.00 06/22/16 00:00 Nasal Cannula 3.00 06/22/16 00:00 98.4 88 21 154/76 96 06/21/16 20:00 81 06/21/16 20:00 Nasal Cannula 3.00 06/21/16 20:00 96.2 67 22 164/84 95 06/21/16 19:30 98 Nasal Cannula 4.00 06/21/16 16:00 97.8 74 20 127/62 95 06/21/16 12:00 97.3 75 20 113/64 97 06/21/16 11:10 94 Nasal Cannula 4.00 I/O 06/21/16 06/21/16 06/21/16 06/22/16 06/22/16 06/22/16 07:00 15:00 23:00 07:00 15:00 23:00 Intake Total 896 ml 1837 ml 927 ml 1170 ml Output Total 800 ml 480 ml 400 ml Balance 96 ml 1837 ml 447 ml 770 ml Intake Oral 120 ml 900 ml 380 ml 180 ml IV Total 776 ml 937 ml 547 ml 990 ml Output Urine Total 800 ml 480 ml 400 ml # Voids 5 # Bowel Movements 2 1 1 1 Result Diagram: 06/21/16 0430 06/21/16 0430 Objective Remarks GENERAL: NAD, A&Ox2 SKIN: Warm and dry. HEAD: Normocephalic. EYES: No scleral icterus. No injection or drainage. NECK: Supple, trachea midline. No JVD or lymphadenopathy. CARDIOVASCULAR: Regular rate and rhythm without murmurs, gallops, or rubs. RESPIRATORY: Breath sounds equal bilaterally. No accessory muscle use. Clear to auscultation. GASTROINTESTINAL: Abdomen soft, non-tender, nondistended. MUSCULOSKELETAL: No cyanosis, or edema. BACK: Nontender without obvious deformity. No CVA tenderness. A/P Problem List: (1) Bilateral pulmonary embolism ICD Code: I26.99 Assessment & Plan: Heparin Coumadin Follow INR Monitor BP Oxygen as needed Follow for improved oxygenation and exertional tolerance (2) Syncope and collapse ICD Code: R55 Assessment & Plan: related to pulmonary embolus (was likely large) No recurrence of syncope or presyncope (3) Hypertension ICD Code: I10 Assessment & Plan: Follow BP Treat with PRN enalapril (4) Parkinson disease ICD Code: G20 Assessment & Plan: Supportive care PT OT Assessment and Plan Assesment and Plan: Mr. Garibay is an 85 year old male. Coumadin held as INR is hyperthreputic. WHen thereputic he will be resumed on coumadin at a lower dose. Improved congnition compared to yesterday. Remains on oxygen, wean ordered. PT to continue. Discharge Planning Goal to wean from oxygen with exertional tolerance and baseline ambulation. Darrel Cain MD June 22, 2016 10:01
[2016-06-22] MEDS: HEPARIN-D5W INJ 250 ML IV SCH (20:49)
--- NOTE | 2016-06-22 23:08 | PD.ONC.PN ---
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 resting comfortable. no bleeding heparin GTT no dyspnea/no hemoptysis o2 sats in the 90s Objective Data Date Time Temp Pulse Resp B/P Pulse Ox O2 Delivery O2 Flow Rate FiO2 06/22/16 20:00 97.8 89 20 180/77 96 06/22/16 16:01 98.2 76 19 153/73 97 06/22/16 15:16 95 Nasal Cannula 3.00 06/22/16 12:13 98.4 74 20 133/60 95 06/22/16 08:31 97.8 76 20 162/72 95 06/22/16 08:00 75 06/22/16 08:00 Nasal Cannula 3.00 06/22/16 07:41 94 Nasal Cannula 3.00 06/22/16 04:42 98.5 78 21 148/76 99 06/22/16 04:00 Nasal Cannula 3.00 06/22/16 00:00 Nasal Cannula 3.00 06/22/16 00:00 98.4 88 21 154/76 96 06/22/16 06/22/16 06/22/16 07:00 15:00 23:00 Intake Total 1170 ml 1447 ml Output Total 400 ml 400 ml Balance 770 ml 1047 ml Result Diagram: 06/21/16 0430 06/21/16 0430 Laboratory Results Laboratory Tests Test 06/22/16 06:33 Prothrombin Time 43.9 SEC Prothromb Time International 3.7 RATIO Ratio Activated Partial 47.9 SEC Thromboplast Time Administered Medications Medications (Trade) Dose Ordered Sig/Abdias Route PRN Reason Start Time Stop Time Status Last Admin Dose Admin Sodium Chloride 2 ml 2 ml BID IV FLUSH 06/17/16 21:00 06/22/16 20:37 Heparin Sodium/ Dextrose (Heparin-D5W Inj) 250 ml @ 0 mls/hr TITRATE IV 06/17/16 20:15 06/22/16 20:49 Bupropion HCl 150 mg 150 mg TID PO 06/18/16 09:00 06/22/16 18:14 Sodium Chloride (NS 1000 ml Inj) 1,000 ml @ 100 mls/hr Q10H IV 06/17/16 20:14 06/22/16 20:26 Pantoprazole Sodium (Protonix) 40 mg DAILY PO 06/18/16 09:00 06/22/16 09:42 Docusate Sodium (Colace) 100 mg BID PO 06/17/16 21:00 06/22/16 20:35 Sennosides (Senokot) 17.2 mg Q12H PRN PO CONSTIPATION 06/17/16 20:15 06/20/16 20:48 Chlorhexidine Gluconate (Chlorhexidine 2% Cloth) 3 pack Taper DAILY@04 TOP 06/18/16 04:00 06/14/17 03:59 06/22/16 03:31 Oxycodone/ Acetaminophen (Percocet 5-325 Mg) 1 tab Q8HR PRN PO pain scale 3-10 06/18/16 16:30 06/18/16 17:13 Amlodipine Besylate (Norvasc) 5 mg DAILY PO 06/19/16 11:45 06/22/16 09:42 Enalaprilat (Vasotec Inj) 1.25 mg Q6H PRN IV PUSH SBP>160, DBP>90 06/20/16 21:30 06/22/16 20:36 Objective Remarks GENERAL: nad SKIN: Warm and dry. NECK: Supple, trachea midline. No JVD or lymphadenopathy. LYMPHATIC: No adenopathy. CARDIOVASCULAR: Regular rate and rhythm without murmurs. RESPIRATORY: Breath sounds equal bilaterally. No accessory muscle use. GASTROINTESTINAL: Abdomen soft, non-tender, nondistended. EXTREMITIES: No cyanosis, or edema. Assessment/Plan Problem List: (1) Bilateral pulmonary embolism Status: Acute Plan: --bilateral PE --currently on heparin gtt-->coumadin --nonocclusive DVT in LLE --Continue heparin gtt until his INR is above 2 for at least 48 hours. Assessment 85y/o admitted after syncope and fall. Hematology consulted for bilateral PE history of Parkinson's and dementia, hypertension, history of myocardial infarction, CVA. Plan 1. INR 3.7. Hold coumadin. Will resume at a lower dose when falls down to approx 2.5. continue heparin for now. Garo Momin MD June 22, 2016 23:08
[2016-06-23] VITALS (10 sets, daily range): BP systolic 139–168; BP diastolic 64–88; PULSE 68–92; RESP 18–20; TEMP 97.5–98.4; O2SAT 96–99
[2016-06-23] MEDS: CHLORHEXIDINE GLUCONATE 2 % 1 PACK (2 CLOTHS) TOP SCH (02:05)
[2016-06-23] MEDS: SODIUM CHLOR 0.9% 1000 ML INJ 1,000 ML IV SCH (05:59)
[2016-06-23] MEDS: RESP: ALBUTEROL 2.5 MG/IPRATROPIUM 0.5 MG NEB (PRN) INH ×2 (08:37→18:19)
[2016-06-23] MEDS: DOCUSATE SODIUM 100 MG CAP PO SCH ×2 (09:00→20:40)
[2016-06-23] MEDS ORDERED: FUROSEMIDE 20 MG/2 ML VIAL IV PUSH ONE (09:15)
[2016-06-23] MEDS: amLODIPine BESYLATE 5 MG TAB PO SCH (09:16)
[2016-06-23] MEDS: buPROPion HCL 150 MG SUSTAINED RELEASE TAB PO SCH ×3 (09:16→17:20)
[2016-06-23] MEDS: PANTOPRAZOLE SOD 40 MG DELAYED RELEASE TAB PO SCH (09:16)
[2016-06-23 09:51] LABS: PROTHROMBIN TIME - PATIENT 35.3 SEC (9.8-11.6)
[2016-06-23 09:52] LABS: HEMATOCRIT 36.1 % (39.0-51.0); MEAN CELL VOLUME 87.8 FL (80.0-100.0); MEAN CORPUSCULAR HEMOGLOBIN 28.4 PG (27.0-34.0); MEAN CORPUSCULAR HGB CONC 32.3 % (32.0-36.0); PLATELET COUNT 241 TH/MM3 (150-450); RED BLOOD COUNT 4.11 MIL/MM3 (4.50-5.90); RED CELL DISTRIBUTION WIDTH 14.9 % (11.6-17.2); REVIEW FLAG FINAL; WHITE BLOOD COUNT 7.6 TH/MM3 (4.0-11.0)
[2016-06-23 10:13] LABS: BICARBONATE 21.7 MEQ/L (21.0-32.0); POTASSIUM 3.9 MEQ/L (3.5-5.1)
--- NOTE | 2016-06-23 12:36 | HHI.PR ---
Subjective Remarks Shortness of breath overnight, with coughing. No respiratory distress when seen. INR is 3.0 now. No distress. Objective Vital Signs Date Time Temp Pulse Resp B/P Pulse Ox O2 Delivery O2 Flow Rate FiO2 06/23/16 09:41 68 06/23/16 08:00 97.7 74 18 156/72 96 06/23/16 06:02 148/80 06/23/16 04:00 98.4 73 20 168/88 97 06/23/16 00:00 98.0 92 18 152/74 98 06/22/16 20:00 73 06/22/16 20:00 Nasal Cannula 3.00 06/22/16 20:00 97.8 89 20 180/77 96 06/22/16 16:01 98.2 76 19 153/73 97 06/22/16 15:16 95 Nasal Cannula 3.00 I/O 06/22/16 06/22/16 06/22/16 06/23/16 06/23/16 06/23/16 07:00 15:00 23:00 07:00 15:00 23:00 Intake Total 1170 ml 1447 ml 240 ml 1518 ml Output Total 400 ml 400 ml 200 ml 1000 ml Balance 770 ml 1047 ml 40 ml 518 ml Intake Oral 180 ml 360 ml 240 ml 120 ml IV Total 990 ml 1087 ml 1398 ml Output Urine Total 400 ml 400 ml 200 ml 1000 ml # Bowel Movements 1 1 0 2 Result Diagram: 06/23/16 0904 06/23/16 0904 Objective Remarks GENERAL: NAD, A&Ox2 SKIN: Warm and dry. HEAD: Normocephalic. EYES: No scleral icterus. No injection or drainage. NECK: Supple, trachea midline. No JVD or lymphadenopathy. CARDIOVASCULAR: Regular rate and rhythm without murmurs, gallops, or rubs. RESPIRATORY: Breath sounds equal bilaterally. No accessory muscle use. Clear to auscultation. GASTROINTESTINAL: Abdomen soft, non-tender, nondistended. MUSCULOSKELETAL: No cyanosis, or edema. BACK: Nontender without obvious deformity. No CVA tenderness. Medications and IVs Administered Medications Medications (Trade) Dose Ordered Sig/Abdias Route PRN Reason Start Time Stop Time Status Last Admin Dose Admin Sodium Chloride (NS Flush) 2 ml BID IV FLUSH 06/17/16 21:00 06/22/16 20:37 Bupropion HCl (Wellbutrin Sr) 150 mg TID PO 06/18/16 09:00 06/23/16 09:16 Pantoprazole Sodium (Protonix) 40 mg DAILY PO 06/18/16 09:00 06/23/16 09:16 Docusate Sodium (Colace) 100 mg BID PO 06/17/16 21:00 06/22/16 20:35 Sennosides (Senokot) 17.2 mg Q12H PRN PO CONSTIPATION 06/17/16 20:15 06/20/16 20:48 Chlorhexidine Gluconate (Chlorhexidine 2% Cloth) Taper DAILY@04 TOP 06/18/16 04:00 06/14/17 03:59 06/22/16 03:31 Oxycodone/ Acetaminophen (Percocet 5-325 Mg) 1 tab Q8HR PRN PO pain scale 3-10 06/18/16 16:30 06/18/16 17:13 Amlodipine Besylate (Norvasc) 5 mg DAILY PO 06/19/16 11:45 06/23/16 09:16 Enalaprilat (Vasotec Inj) 1.25 mg Q6H PRN IV PUSH SBP>160, DBP>90 06/20/16 21:30 06/22/16 20:36 A/P Problem List: (1) Bilateral pulmonary embolism ICD Code: I26.99 Assessment & Plan: Heparin Coumadin Follow INR Monitor BP Oxygen as needed Follow for improved oxygenation and exertional tolerance (2) Syncope and collapse ICD Code: R55 Assessment & Plan: related to pulmonary embolus (was likely large) No recurrence of syncope or presyncope (3) Hypertension ICD Code: I10 Assessment & Plan: Follow BP Treat with PRN enalapril (4) Parkinson disease ICD Code: G20 Assessment & Plan: Supportive care PT OT Assessment and Plan Assesment and Plan: Mr. Garibay is an 85 year old male. Coumadin held as INR is hyperthreputic, no at upper margin of thereputic, coumadin resumed. Heparin discontinued due to near 48 hours of thereputic range. IV Hydration discontinued. Discharge Planning Goal to wean from oxygen with exertional tolerance and baseline ambulation. Darrel Cain MD June 23, 2016 12:36 pm
[2016-06-23] MEDS ORDERED: WARFARIN SOD 1 MG TAB PO SCH (16:00)
[2016-06-23] MEDS: SODIUM CHLORIDE 0.9% FLUSH 10 ML FLUSH IV FLUSH SCH ×2 (17:24→20:39)
[2016-06-24] VITALS (10 sets, daily range): BP systolic 124–168; BP diastolic 63–77; PULSE 72–80; RESP 18–20; TEMP 97.2–99; O2SAT 95–98
--- NOTE | 2016-06-24 00:08 | PD.ONC.PN ---
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 looking forward to be discharged from the hospital Objective Data Date Time Temp Pulse Resp B/P Pulse Ox O2 Delivery O2 Flow Rate FiO2 06/23/16 21:38 97 Nasal Cannula 3.00 06/23/16 20:36 98.2 85 18 139/82 96 06/23/16 20:30 Nasal Cannula 3.00 06/23/16 16:00 97.5 70 18 151/76 99 06/23/16 12:00 98.2 75 18 146/64 97 06/23/16 09:41 68 06/23/16 08:35 96 Nasal Cannula 3.00 06/23/16 08:00 96 Nasal Cannula 3.00 50 06/23/16 08:00 97.7 74 18 156/72 96 06/23/16 06:02 148/80 06/23/16 04:00 98.4 73 20 168/88 97 Result Diagram: 06/23/16 0904 06/23/16 0904 Laboratory Results Laboratory Tests Test 06/23/16 09:04 White Blood Count 7.6 TH/MM3 Red Blood Count 4.11 MIL/MM3 Hemoglobin 11.7 GM/DL Hematocrit 36.1 % Mean Corpuscular Volume 87.8 FL Mean Corpuscular Hemoglobin 28.4 PG Mean Corpuscular Hemoglobin 32.3 % Concent Red Cell Distribution Width 14.9 % Platelet Count 241 TH/MM3 Mean Platelet Volume 8.1 FL Prothrombin Time 35.3 SEC Prothromb Time International 3.0 RATIO Ratio Activated Partial 50.0 SEC Thromboplast Time Sodium Level 140 MEQ/L Potassium Level 3.9 MEQ/L Chloride Level 109 MEQ/L Carbon Dioxide Level 21.7 MEQ/L Anion Gap 9 MEQ/L Blood Urea Nitrogen 17 MG/DL Creatinine 0.83 MG/DL Estimat Glomerular Filtration 88 ML/MIN Rate Random Glucose 128 MG/DL Calcium Level 8.0 MG/DL Administered Medications Medications (Trade) Dose Ordered Sig/Abdias Route PRN Reason Start Time Stop Time Status Last Admin Dose Admin Sodium Chloride (NS Flush) 2 ml BID IV FLUSH 06/17/16 21:00 06/23/16 20:39 Bupropion HCl (Wellbutrin Sr) 150 mg TID PO 06/18/16 09:00 06/23/16 17:20 Pantoprazole Sodium (Protonix) 40 mg DAILY PO 06/18/16 09:00 06/23/16 09:16 Docusate Sodium (Colace) 100 mg BID PO 06/17/16 21:00 06/23/16 20:40 Sennosides (Senokot) 17.2 mg Q12H PRN PO CONSTIPATION 06/17/16 20:15 06/20/16 20:48 Chlorhexidine Gluconate (Chlorhexidine 2% Cloth) Taper DAILY@04 TOP 06/18/16 04:00 06/14/17 03:59 06/22/16 03:31 Oxycodone/ Acetaminophen (Percocet 5-325 Mg) 1 tab Q8HR PRN PO pain scale 3-10 06/18/16 16:30 06/18/16 17:13 Amlodipine Besylate (Norvasc) 5 mg DAILY PO 06/19/16 11:45 06/23/16 09:16 Enalaprilat (Vasotec Inj) 1.25 mg Q6H PRN IV PUSH SBP>160, DBP>90 06/20/16 21:30 06/22/16 20:36 Warfarin Sodium (Coumadin) 1 mg DAILY@16 PO 06/23/16 16:00 06/23/16 17:20 Objective Remarks GENERAL: nad SKIN: Warm and dry. LYMPHATIC: No adenopathy. CARDIOVASCULAR: Regular rate and rhythm without murmurs. RESPIRATORY: Breath sounds equal bilaterally. No accessory muscle use. GASTROINTESTINAL: Abdomen soft, non-tender, nondistended. EXTREMITIES: No cyanosis, or edema. Assessment/Plan Problem List: (1) Bilateral pulmonary embolism Status: Acute Plan: --bilateral PE --currently on heparin gtt-->coumadin --nonocclusive DVT in LLE --Continue heparin gtt until his INR is above 2 for at least 48 hours. Assessment 85y/o admitted after syncope and fall. Hematology consulted for bilateral PE history of Parkinson's and dementia, hypertension, history of myocardial infarction, CVA. Plan 1. INR 3.0. Hold coumadin. Stop heparin tomorrow and resume coumadin at 2.5 mg daily. Ok to d/c from hematology perspective Garo Momin MD June 24, 2016 00:08
[2016-06-24] MEDS: CHLORHEXIDINE GLUCONATE 2 % 1 PACK (2 CLOTHS) TOP SCH (02:30)
[2016-06-24] MEDS: RESP: ALBUTEROL 2.5 MG/IPRATROPIUM 0.5 MG NEB (PRN) INH ×2 (06:16→21:21)
[2016-06-24 07:52] LABS: INTERNATIONAL NORMALIZED RATIO 2.5 RATIO; PROTHROMBIN TIME - PATIENT 28.4 SEC (9.8-11.6)
[2016-06-24] MEDS: SODIUM CHLORIDE 0.9% FLUSH 10 ML FLUSH IV FLUSH SCH ×2 (09:00→21:00)
[2016-06-24] MEDS: amLODIPine BESYLATE 5 MG TAB PO SCH (09:08)
[2016-06-24] MEDS: buPROPion HCL 150 MG SUSTAINED RELEASE TAB PO SCH ×3 (09:08→16:31)
[2016-06-24] MEDS: DOCUSATE SODIUM 100 MG CAP PO SCH ×2 (09:08→21:13)
[2016-06-24] MEDS: PANTOPRAZOLE SOD 40 MG DELAYED RELEASE TAB PO SCH (09:08)
[2016-06-24] MEDS: LISINOPRIL 10 MG TAB PO SCH (09:10)
--- NOTE | 2016-06-24 11:27 | HHI.PR ---
Subjective Remarks No shortness of breath overnight. No respiratory distress when seen. INR is 3.5 now. No distress. Objective Vital Signs Date Time Temp Pulse Resp B/P Pulse Ox O2 Delivery O2 Flow Rate FiO2 06/24/16 10:50 95 Nasal Cannula 3.00 06/24/16 08:00 98.0 80 20 163/77 95 06/24/16 08:00 Nasal Cannula 3.00 06/24/16 04:00 98.3 77 18 168/71 96 06/24/16 00:27 98.2 77 18 152/77 98 06/23/16 21:38 97 Nasal Cannula 3.00 06/23/16 20:36 98.2 85 18 139/82 96 06/23/16 20:30 Nasal Cannula 3.00 06/23/16 16:00 97.5 70 18 151/76 99 06/23/16 12:00 98.2 75 18 146/64 97 I/O 06/23/16 06/23/16 06/23/16 06/24/16 06/24/16 06/24/16 07:00 15:00 23:00 07:00 15:00 23:00 Intake Total 1518 ml 900 ml 0 ml 0 ml Output Total 1000 ml 700 ml 250 ml Balance 518 ml 200 ml 0 ml -250 ml 0 ml Intake Oral 120 ml 900 ml IV Total 1398 ml 0 ml 0 ml Output Urine Total 1000 ml 700 ml 250 ml # Voids 3 3 # Bowel Movements 2 3 3 Result Diagram: 06/23/16 0904 06/23/16 0904 Objective Remarks GENERAL: NAD, A&Ox2 SKIN: Warm and dry. HEAD: Normocephalic. EYES: No scleral icterus. No injection or drainage. NECK: Supple, trachea midline. No JVD or lymphadenopathy. CARDIOVASCULAR: Regular rate and rhythm without murmurs, gallops, or rubs. RESPIRATORY: Breath sounds equal bilaterally. No accessory muscle use. Clear to auscultation. GASTROINTESTINAL: Abdomen soft, non-tender, nondistended. MUSCULOSKELETAL: No cyanosis, or edema. BACK: Nontender without obvious deformity. No CVA tenderness. A/P Problem List: (1) Bilateral pulmonary embolism ICD Code: I26.99 Assessment & Plan: Heparin Coumadin Follow INR Monitor BP Oxygen as needed Follow for improved oxygenation and exertional tolerance (2) Syncope and collapse ICD Code: R55 Assessment & Plan: related to pulmonary embolus (was likely large) No recurrence of syncope or presyncope (3) Hypertension ICD Code: I10 Assessment & Plan: Follow BP Treat with PRN enalapril (4) Parkinson disease ICD Code: G20 Assessment & Plan: Supportive care PT OT Assessment and Plan Assesment and Plan: Mr. Garibay is an 85 year old male. Coumadin on hold due to a level of 3.5 for his INR. Some confusion last night. Doing well today. Out of bed with PT ( stood, no walking yet) yesterday. Wean oxygen and follow pulse ox. Discharge Planning Goal to wean from oxygen with exertional tolerance and baseline ambulation. Darrel Cain MD June 24, 2016 11:27
[2016-06-24] MEDS ORDERED: traZODone HCL 50 MG TAB PO PRN (12:00)
[2016-06-24] MEDS ORDERED: WARFARIN SOD 2 MG TAB PO SCH (16:00)
[2016-06-25] VITALS (7 sets, daily range): BP systolic 115–139; BP diastolic 55–74; PULSE 69–77; RESP 18–20; TEMP 97.3–99.1; O2SAT 92–97
[2016-06-25] MEDS: CHLORHEXIDINE GLUCONATE 2 % 1 PACK (2 CLOTHS) TOP SCH (02:49)
[2016-06-25 07:45] LABS: INTERNATIONAL NORMALIZED RATIO 2.2 RATIO; PROTHROMBIN TIME - PATIENT 25.4 SEC (9.8-11.6)
[2016-06-25] MEDS: DOCUSATE SODIUM 100 MG CAP PO SCH ×2 (09:04→20:21)
[2016-06-25] MEDS: amLODIPine BESYLATE 5 MG TAB PO SCH (09:04)
[2016-06-25] MEDS: buPROPion HCL 150 MG SUSTAINED RELEASE TAB PO SCH ×3 (09:05→18:16)
[2016-06-25] MEDS: PANTOPRAZOLE SOD 40 MG DELAYED RELEASE TAB PO SCH (09:05)
[2016-06-25] MEDS: SODIUM CHLORIDE 0.9% FLUSH 10 ML FLUSH IV FLUSH SCH ×2 (09:05→20:22)
[2016-06-25] MEDS: LISINOPRIL 10 MG TAB PO SCH (09:05)
--- NOTE | 2016-06-25 09:34 | HHI.PR ---
Subjective Remarks Oxygen weaned to 1L/min. Drops to 89-92 % on room air. No shortness of breath overnight. No respiratory distress when seen. INR is 2.2 now. No distress. Objective Vital Signs Date Time Temp Pulse Resp B/P Pulse Ox O2 Delivery O2 Flow Rate FiO2 06/25/16 08:00 97.3 73 20 139/74 96 06/25/16 04:00 98.8 70 18 135/63 97 06/25/16 00:00 99.1 71 18 135/64 96 06/24/16 21:25 97 Nasal Cannula 3.00 06/24/16 20:15 Nasal Cannula 3.00 06/24/16 20:00 99.0 77 18 124/63 95 06/24/16 19:10 77 06/24/16 16:00 97.2 72 20 168/77 95 06/24/16 12:00 97.9 73 20 141/67 95 06/24/16 10:50 95 Nasal Cannula 3.00 I/O 06/24/16 06/24/16 06/24/16 06/25/16 06/25/16 06/25/16 07:00 15:00 23:00 07:00 15:00 23:00 Intake Total 480 ml 242 ml 100 ml Output Total 250 ml 625 ml 125 ml Balance -250 ml -145 ml 242 ml -25 ml Intake Oral 480 ml 240 ml 100 ml IV Total 0 ml 2 ml Output Urine Total 250 ml 625 ml 125 ml # Voids 3 1 2 1 # Bowel Movements 3 1 0 0 Result Diagram: 06/23/16 0904 06/23/16 0904 Objective Remarks GENERAL: NAD, A&Ox2 SKIN: Warm and dry. HEAD: Normocephalic. EYES: No scleral icterus. No injection or drainage. NECK: Supple, trachea midline. No JVD or lymphadenopathy. CARDIOVASCULAR: Regular rate and rhythm without murmurs, gallops, or rubs. RESPIRATORY: Breath sounds equal bilaterally. No accessory muscle use. Clear to auscultation. GASTROINTESTINAL: Abdomen soft, non-tender, nondistended. MUSCULOSKELETAL: No cyanosis, or edema. BACK: Nontender without obvious deformity. No CVA tenderness. A/P Problem List: (1) Bilateral pulmonary embolism ICD Code: I26.99 Assessment & Plan: Heparin Coumadin Follow INR Monitor BP Oxygen as needed Follow for improved oxygenation and exertional tolerance (2) Syncope and collapse ICD Code: R55 Assessment & Plan: related to pulmonary embolus (was likely large) No recurrence of syncope or presyncope (3) Hypertension ICD Code: I10 Assessment & Plan: Follow BP Treat with PRN enalapril (4) Parkinson disease ICD Code: G20 Assessment & Plan: Supportive care PT OT Assessment and Plan Assesment and Plan: Mr. Garibay is an 85 year old male. Improved oxygenation. Weaning O2. Continued PT. Follow oxygenation saturations. Continue coumadin and follow INR. Discharge Planning Goal to wean from oxygen with exertional tolerance and baseline ambulation. Darrel Cain MD June 25, 2016 09:34
[2016-06-25] MEDS ORDERED: WARFARIN SOD 2.5 MG TAB PO SCH (16:00)
[2016-06-25] MEDS ORDERED: traZODone HCL 100 MG TAB PO SCH (21:00)
[2016-06-26] VITALS: BP 128/62; PULSE 73; RESP 20; TEMP 98.2; O2SAT 95
[2016-06-26] MEDS: CHLORHEXIDINE GLUCONATE 2 % 1 PACK (2 CLOTHS) TOP SCH (03:25)
[2016-06-26 04:00] VITALS: BP 130/60; PULSE 70; RESP 18; TEMP 98.8; O2SAT 94
[2016-06-26 07:03] LABS: HEMATOCRIT 34.8 % (39.0-51.0); MEAN CELL VOLUME 88.3 FL (80.0-100.0); MEAN CORPUSCULAR HEMOGLOBIN 28.5 PG (27.0-34.0); MEAN CORPUSCULAR HGB CONC 32.3 % (32.0-36.0); PLATELET COUNT 283 TH/MM3 (150-450); RED BLOOD COUNT 3.94 MIL/MM3 (4.50-5.90); RED CELL DISTRIBUTION WIDTH 14.8 % (11.6-17.2); REVIEW FLAG FINAL; WHITE BLOOD COUNT 7.8 TH/MM3 (4.0-11.0)
[2016-06-26 07:16] LABS: INTERNATIONAL NORMALIZED RATIO 2.5 RATIO; PROTHROMBIN TIME - PATIENT 29.1 SEC (9.8-11.6)
[2016-06-26 08:00] VITALS: BP 127/59; PULSE 71; RESP 20; TEMP 97.8; O2SAT 95
--- NOTE | 2016-06-26 08:26 | HHI.DS ---
Discharge Summary Admission Date Jun 17, 2016 at 20:07 Discharge Date: June 26, 2016 Admitting Diagnosis B PE; syncope (1) Bilateral pulmonary embolism ICD Code: I26.99 Diagnosis: Principal (2) Hypertension ICD Code: I10 Diagnosis: Secondary (3) History of myocardial infarction ICD Code: I25.2 Diagnosis: Secondary (4) History of CVA (cerebrovascular accident) ICD Code: Z86.73 Diagnosis: Secondary Procedures none Brief History - From Admission 85 y/o man fell at assisted living facility and brought to ED for syncope. Head CT normal but CTA chest reveals submassive pulmonary embolism. Because of age, recent fall with head knock, I will not use tPA. CBC/BMP: 06/26/16 0601 06/23/16 0904 Significant Findings Laboratory Tests Test 06/23/16 06/24/16 06/25/16 06/26/16 09:04 06:26 07:03 06:01 Red Blood Count 4.11 MIL/MM3 3.94 MIL/MM3 (4.50-5.90) (4.50-5.90) Hemoglobin 11.7 GM/DL 11.2 GM/DL (13.0-17.0) (13.0-17.0) Hematocrit 36.1 % 34.8 % (39.0-51.0) (39.0-51.0) Prothrombin Time 35.3 SEC 28.4 SEC 25.4 SEC 29.1 SEC (9.8-11.6) (9.8-11.6) (9.8-11.6) (9.8-11.6) Activated Partial 50.0 SEC Thromboplast Time (24.3-30.1) Chloride Level 109 MEQ/L (98-107) Estimat Glomerular Filtration 88 ML/MIN (>89) Rate Random Glucose 128 MG/DL (74-106) Calcium Level 8.0 MG/DL (8.5-10.1) Imaging Last Impressions Lower Extremity Ultrasound 06/18/16 0000 Signed Impressions: Service Date/Time: Saturday, June 18, 2016 16:36 - CONCLUSION: Nonocclusive DVT on the left. Maryann Redding MD Head CT 06/17/161851 Signed Impressions: Service Date/Time: Friday, June 17, 2016 19:32 - CONCLUSION: Slight atrophic and small vessel ischemic changes without any evidence for acute hemorrhage or mass effect. Maryann Redding MD Chest X-Ray 06/17/161808 Signed Impressions: Service Date/Time: Friday, June 17, 2016 18:14 - CONCLUSION: No acute cardiopulmonary disease. Maryann Redding MD CT Angiography 06/17/161808 Signed Impressions: Service Date/Time: Friday, June 17, 2016 19:38 - CONCLUSION: Extensive PE. Maryann Redding MD PE at Discharge Gen: Elderly man sitting up in bed not in any acute distress Lungs: Coarse BS, rhonchi clears with coughing. No wheezing. Heart: NL S1S2, RRR, no m,r. No JVD. Abdomen: Benign, soft, ND. No guarding. Extremities: Warm, well perfused. Neuro: Moves 4 limbs to command. Conversant, speech clear. Pt update on day of discharge Patient seen and examined today. Caregiver at the bedside, reports patient occasionally is having cough. Patient states he is not expectorating anything. Continues to have shortness of breath with exertion on 1 L nasal cannula. States he continues to be weak unable to get in and out of bed without assistance. Discussed with patient transferred to rehabilitation Center to regain his strength with physical therapy and occupational therapy. Otherwise, denies pain and discomfort. Denies chest pain, palpitations, headaches, dizziness. Denies fevers, chills, n/v/d. Hospital Course Patient had experienced syncope and fall from assisted living. CT angiogram showed extensive PE involving bilateral pulmonary arteries, upper and lower lobe pulmonary arteries and right middle lobe pulmonary artery. Doppler studies of the bilateral lower extremity showed a nonocclusive DVT on the left. Patient is not a candidate for TPA secondary to age and recent fall with head injury. Hospitalization includes starting patient on heparin drip bridging with Coumadin. Patient has been on Coumadin, with therapeutic INR 2.5 today. Patient is also mean of oxygen to 1 L/m nasal cannula. No shortness of breath overnight, SOB with exertion. Bilateral pulmonary embolism - Continue on Coumadin, monitor INR - O2 nasal cannula as needed. Improved oxygenation exertional tolerance - DuoNeb's scheduled and when necessary SOB/Congestion Syncope and collapse - Related to pulmonary embolus (was likely large) - No recurrence of syncope or presyncope Patient has a history of Parkinson's disease continue with supportive care, physical therapy and occupational therapy. Goal to wean him from oxygen with exertional tolerance and baseline ambulation. Patient will be discharged to [facility] for continued strengthening. Pt Condition on Discharge: Stable Discharge Disposition: Discharge to SNF Discharge Time: > 30 minutes Discharge Instructions DIET: Follow Instructions for: Heart Healthy Diet, Low Sodium Diet Speech Therapy-Diet Recommends: Regular Activities you can perform: Regular-No Restrictions Activities to Avoid: Driving Follow up Referrals: Appointment for Follow Up - 2 Weeks @ HEMATOLOGY with [facility] PCP Follow-up - 1 Week SNF/[facility]/HH with [facility] New Medications: Docusate Sodium (Dok) 100 Mg Cap 100 MG PO BID Constipation Days 30 CAP Ipratropium-Albuterol Neb (Duoneb) 0.5-2.5 Mg/3 Ml Neb 1 AMPULE NEB Q6HR WHILE AWAKE NEB Shortness of Breath Days 7 ML Ipratropium-Albuterol Neb (Duoneb) 0.5-2.5 Mg/3 Ml Neb 1 AMPULE INH Q4HR NEB PRN WHEEZING Days 30 ML Lisinopril (Lisinopril) 10 Mg Tab 10 MG PO DAILY Blood Pressure Management Days 30 TAB Pantoprazole (Pantoprazole) 40 Mg Tab 40 MG PO DAILY Dyspepsia Days 30 TAB Trazodone (Trazodone) 50 Mg Tab 100 MG PO HS Depression Control Days 30 TAB Warfarin (Coumadin) 2.5 Mg Tab 2.5 MG PO DAILY@16 Blood Clot Prevention Days 7 TAB Continued Medications: Amlodipine (Amlodipine) 5 Mg Tab 5 MG PO BID Blood Pressure Management #30 Ref 0 TAB Bupropion HCl ER 12 HR (Bupropion HCl ER 12 HR) 150 Mg Tab 150 MG PO TID Ref 0 TAB Multiple Vitamins W/ Minerals (Preservision Areds 2) 1 Cap 1 CAP PO DAILY Nutritional Supplement Ref 0 CAP Discontinued Medications: Aspirin (Aspirin) 325 Mg Tab 325 MG PO DAILY #30 Ref 0 TAB Mallory Christiansen June 26, 2016 08:26
[2016-06-26] MEDS ORDERED: IPRASOL INH (08:32)
[2016-06-26] MEDS ORDERED: LISI10TA3 PO (08:32)
[2016-06-26] MEDS ORDERED: TRAZ50TA12 PO (08:32)
[2016-06-26] MEDS ORDERED: IPRASOL NEB (08:32)
[2016-06-26] MEDS ORDERED: PANT40TA3 PO (08:32)
[2016-06-26] MEDS ORDERED: DOCU1CAP39 PO (08:32)
[2016-06-26] MEDS ORDERED: COUM2.5T PO (08:32)
--- NOTE | 2016-06-26 08:37 | HHI.DCPOC ---
Discharge Care Plan Diagnosis: (1) Bilateral pulmonary embolism (2) History of CVA (cerebrovascular accident) (3) History of myocardial infarction (4) Hypertension (5) Syncope and collapse (6) Parkinson disease Your Health Problems Are: Difficulty with ADL Bleeding Tendency Exercise Tolerance Cough Shortness of Breath Goals to Promote Your Health * To prevent worsening of your condition and complications * To maintain your health at the optimal level Directions to Meet Your Goals Take your medications as prescribed Follow your dietary instruction Follow activity as directed Keep your appointments as scheduled Take your immunizations and boosters as scheduled If your symptoms worsen call your PCP, if no PCP go to Urgent Care Center or Emergency Room Smoking is Dangerous to Your Health. Avoid second hand smoke Call the 24-hour hour crisis hotline for domestic abuse at Mallory Christiansen June 26, 2016 08:36
[2016-06-26] MEDS: SODIUM CHLORIDE 0.9% FLUSH 10 ML FLUSH IV FLUSH SCH (09:00)
[2016-06-26 10:49] VITALS: O2SAT 95
[2016-06-26] MEDS: DOCUSATE SODIUM 100 MG CAP PO SCH (10:53)
[2016-06-26] MEDS: amLODIPine BESYLATE 5 MG TAB PO SCH (10:53)
[2016-06-26] MEDS: PANTOPRAZOLE SOD 40 MG DELAYED RELEASE TAB PO SCH (10:53)
[2016-06-26] MEDS: buPROPion HCL 150 MG SUSTAINED RELEASE TAB PO SCH ×2 (10:53→14:13)
[2016-06-26] MEDS: LISINOPRIL 10 MG TAB PO SCH (10:54)
[2016-06-26] MEDS ORDERED: NORC5TAB PO (11:01)
[2016-06-26 12:00] VITALS: BP 167/72; PULSE 67; RESP 20; TEMP 98; O2SAT 93
[2016-06-26] MEDS ORDERED: RESP: ALBUTEROL 2.5 MG/IPRATROPIUM 0.5 MG NEB (SCH) NEB (14:00)
== END 2016-06-26 15:18 | DRG 176 ==
LOC: NEPC 17:52 → NEDA 20:07 → HIME 22:20 → N04A 06-20 12:58 → N04B 06-25 07:45
PROVIDERS: ADMIT Hospitalist; ATTEND Hospitalist
DX: I26.99 Other pulmonary embolism without acute cor pulmonale (principal); G20 Parkinson's disease; I82.442 Acute embolism and thrombosis of left tibial vein; I82.492 Acute embolism and thrombosis of other specified deep vein of left lower extremity; F02.80 Dementia in other diseases classified elsewhere, unspecified severity, without behavioral disturbance, psychotic disturbance, mood disturbance, and anxiety; I10 Essential (primary) hypertension; E78.5 Hyperlipidemia, unspecified; F32.9 Major depressive disorder, single episode, unspecified; Z85.828 Personal history of other malignant neoplasm of skin; Z86.73 Personal history of transient ischemic attack (TIA), and cerebral infarction without residual deficits; Z87.891 Personal history of nicotine dependence; Z66 Do not resuscitate
CPT/HCPCS: 36600; 70450; 71010; 71275; 80048; 80053; 82550; 82805; 83735; 83880; 84484; 85025; 85027; 85610; 85730; 87641; 93005; 93306; 93970; 94640; 94664; J1644; J1940; J7030; Q9967

== ENCOUNTER 2016-11-02 12:15 | Emergency (ER) | payer OTHER, MEDICARE ==
[~2016-11-02 12:15] MED LIST changes: -ASPI325T PO; +COUM2.5T PO; +DOCU1CAP39 PO; +IPRASOL INH; +IPRASOL NEB; +LISI10TA3 PO; +NORC5TAB PO; +PANT40TA3 PO; +PRESCAP5 PO; +TRAZ50TA12 PO; -TYLETAB34 PO
[2016-11-02 12:18] VITALS: BP 113/55; PULSE 77; RESP 15; TEMP 98.6; O2SAT 97
[2016-11-02] MEDS ORDERED: SENN8.6T81 PO (12:51)
[2016-11-02] MEDS ORDERED: LORA1TAB12 PO (12:51)
[2016-11-02] MEDS ORDERED: BISA10SU3 RECTAL (12:51)
[2016-11-02] MEDS ORDERED: POLY17S PO (12:51)
[2016-11-02] MEDS ORDERED: NYST10007 TOPICAL (12:51)
[2016-11-02] MEDS ORDERED: OMEP20TA PO (12:51)
[2016-11-02] MEDS ORDERED: METH5TAB PO (12:51)
[2016-11-02] MEDS ORDERED: BUPR150T3 PO (12:51)
[2016-11-02] MEDS ORDERED: CITA20TA4 PO (12:51)
[2016-11-02] MEDS ORDERED: WARF4TAB51 PO (12:51)
--- NOTE | 2016-11-02 13:56 | RADRPT ---
EXAM DATE/TIME: 11/02/2016 13:18 [facility] COMPARISON: HUMERUS LEFT (MIN 2VWS), November 02, 2016, 13:17. INDICATIONS : Fall, left forearm pain. MEDICAL HISTORY : None. SURGICAL HISTORY : None. ENCOUNTER: Initial ACUITY: 2 days PAIN SCORE: 7/10 LOCATION: Left forearm FINDINGS: The radius and all are intact. No acute fracture is seen. There are degenerative changes within the e lbow. No effusion is seen within the elbow joint. CONCLUSION: 1. No acute fracture identified. Darrel Soriano MD on November 02, 2016 at 13:53 Board Certified Radiologist. This report was verified electronically.
--- NOTE | 2016-11-02 14:12 | RADRPT ---
EXAM DATE/TIME: 11/02/2016 13:08 [facility] COMPARISON: No previous studies available for comparison. INDICATIONS : Fall, left hip pain. MEDICAL HISTORY : None. SURGICAL HISTORY : None. ENCOUNTER: Initial ACUITY: 2 days PAIN SCORE: 5/10 LOCATION: Left hip FINDINGS: Examination of the left hip was performed with AP Pelvis. The primary and secondary trabecular patte rn of the femoral neck is intact. The hip joint is of normal width without significant sclerosis or bony hypertrophy. The acetabulum is grossly intact. CONCLUSION: Unremarkable examination of the left hip. Ganesh Hamilton MD on November 02, 2016 at 14:10 Board Certified Radiologist. This report was verified electronically.
--- NOTE | 2016-11-02 14:13 | RADRPT ---
EXAM DATE/TIME: 11/02/2016 13:17 [facility] COMPARISON: No previous studies available for comparison. INDICATIONS : Fall, left humerus pain. MEDICAL HISTORY : None. SURGICAL HISTORY : None. ENCOUNTER: Initial ACUITY: 2 days PAIN SCORE: 7/10 LOCATION: Left humerus FINDINGS: Two view examination of the left humerus demonstrates no evidence of fracture or dislocation. Bony m ineralization is normal. The soft tissue structures are intact. CONCLUSION: Unremarkable examination of the left humerus. Ganesh Hamilton MD on November 02, 2016 at 14:12 Board Certified Radiologist. This report was verified electronically.
--- NOTE | 2016-11-02 14:13 | RADRPT ---
EXAM DATE/TIME: 11/02/2016 13:12 [facility] COMPARISON: No previous studies available for comparison. INDICATIONS : Fall, left shoulder pain. MEDICAL HISTORY : None. SURGICAL HISTORY : None. ENCOUNTER: Initial ACUITY: 2 days PAIN SCORE: 8/10 LOCATION: Left shoulder FINDINGS: Multiple view examination of the left shoulder demonstrates no evidence of fracture or dislocation. The glenohumeral and acromioclavicular joints are maintained with moderate hypertrophy of the acromio clavicular joint. There is normal range of motion between internal and external rotation. Bony mine ralization is normal. CONCLUSION: Unremarkable examination of the left shoulder except for arthritis of the acromioclavicular joint. Ganesh Hamilton MD on November 02, 2016 at 14:11 Board Certified Radiologist. This report was verified electronically.
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
[2016-11-02 15:57] VITALS: BP 97/45; PULSE 71; RESP 15; O2SAT 96
== END 2016-11-02 17:27 | disposition hospice, inpatient (51) ==
LOC: PHEFT 12:15
DX: S70.02XA Contusion of left hip, initial encounter (principal); M25.512 Pain in left shoulder; W06.XXXA Fall from bed, initial encounter; X37.0XXA Hurricane, initial encounter; Z79.01 Long term (current) use of anticoagulants
CPT/HCPCS: 73030; 73060; 73090; 73502; 99284